=== PATIENT | male | born 1970 | race American Indian/Alaskan Native ===

== ENCOUNTER 2018-08-20 18:15 | Emergency (ER) | payer OTHER ==
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
[2018-08-20 19:00] VITALS: BP 131/101
[2018-08-20 19:15] LABS: Basophils % (Auto) 0.5 % (0.0-1.8); Eosinophils # (Auto) 0.1 K/mm3 (0.0-0.4); Eosinophils % (Auto) 0.9 % (0.0-4.3); Hematocrit 44.2 % (35.5-45.6); Lymphocytes % (Auto) 31.8 % (13.4-35.0); Mean Corpuscular HGB Conc 32 % (32-34); Mean Corpuscular Volume 72 fl (84-94); Monocytes # (Auto) 0.4 K/mm3 (0.0-0.8); Monocytes % (Auto) 6.9 % (0.0-7.3); Platelet Count 315 K/mm3 (140-440); Red Blood Count 6.11 M/mm3 (3.65-5.03); Red Cell Distribution Width 17.9 % (13.2-15.2)
[2018-08-20 19:16] LABS: Mean Corpuscular Hemoglobin 23 pg (28-32)
[2018-08-20 19:30] LABS: Creatine Kinase MB 4.9 ng/mL (0.0-4.0)
[2018-08-20 19:31] LABS: BUN/Creatinine Ratio 9; Blood Urea Nitrogen 12 mg/dL (9-20); Calcium 9.4 mg/dL (8.4-10.2); Hemolysis Index 0
--- NOTE | 2018-08-20 20:27 | XRay Report ---
FINAL REPORT PROCEDURE: XR CHEST ROUTINE 2V TECHNIQUE: PA and lateral chest radiographs were obtained. CPT 75330 HISTORY: back pain, pleurisy COMPARISON: No prior studies are available for comparison. FINDINGS: Heart: Normal. Mediastinum/Vessels: Normal. Lungs/Pleural space: Normal. Bony thorax: No acute osseous abnormality. Other: IMPRESSION: Normal examination.
== END 2018-08-20 20:30 | disposition home or self-care (01) ==
LOC: ED 18:15
DX: M54.89 Other dorsalgia (principal); M79.1 Myalgia; I10 Essential (primary) hypertension; F17.210 Nicotine dependence, cigarettes, uncomplicated
CPT/HCPCS: 36415; 71046; 80048; 82550; 82553; 84484; 85025; 85379

== ENCOUNTER 2020-03-12 22:10 | Emergency (ER) | payer BC, OTHER ==
--- NOTE | 2020-03-13 02:49 | Emergency Department Report ---
Chief Complaint: Upper Respiratory Infection Stated Complaint: SINUS INFECTION Time Seen by Provider: 03/13/20 02:36 - HPI History of Present Illness: Patient is a 49-year-old male who presents emergency room with complaints of a burning and irritation in his bilateral nostrils that began last night. He states when he inhales through his nose he feels the sensation. He denies any shortness of breath, cough, fever, nausea, vomiting, diarrhea, any other symptoms. He did not try any treatment at home. He has a past medical history of hypertension. He denies any allergies to medications. Initial vitals with elevated blood pressure which improved upon repeat On exam: Non toxic appearing, no acute distress atraumatic, normocephalic normal appearance of the eyes, PERRL, EOMI, no periorbital edema or ecchymosis moist mucus membranes, pale boggy turbinates with clear nasal drainage, no sinus ttp bilaterally regular heart rate and rhythm, no gallops, no rubs, no murmurs breath sounds are clear bilaterally, no w/r/r A&O x4, no focal neuro deficit skin is warm, dry, intact Examination consistent with allergic rhinitis No signs of acute sinusitis Discussed [id number] treatments with patient Patient will be referred to primary care doctor Medical screening examination performed and there is no threat to life or limb at this time - Exam Vital Signs: Vital Signs 03/12/20 23:25 Temperature 98 F Pulse Rate 80 Respiratory 20 Rate Blood Pressure 175/100 [Right] O2 Sat by Pulse 95 Oximetry MSE screening note: Focused history and physical exam performed. ED Disposition for MSE Clinical Impression: Allergic rhinitis Qualifiers: Allergic rhinitis trigger: unspecified Allergic rhinitis seasonality: unspecified Qualified Code(s): J30.9 - Allergic rhinitis, unspecified Disposition: MED SCREENING EXAM-LEFT Is pt being admited?: No Does the pt Need Aspirin: No Condition: Stable Instructions: Allergic Rhinitis (ED) Additional Instructions: Please use Flonase nasal spray [id number]. May use Zyrtec or Claritin [id number]. Please do not use the one that has a D on the end which stands for decongestant due to your high blood pressure. Follow-up with a primary care doctor. May use a humidifier. Return to emergency room for any new or worsening symptoms. Referrals: PRIMARY CARE, [Primary Care Provider] - 2-3 Days Forms: Work/School Release Form(ED) Time of Disposition: 02:48 Print Language: SAMI
[2020-03-13 02:59] VITALS: BP 156/105
== END 2020-03-13 02:58 | disposition left against medical advice (07) ==
LOC: ED 22:10
DX: J30.9 Allergic rhinitis, unspecified (principal)
CPT/HCPCS: 99282

== ENCOUNTER 2020-04-04 19:50 | Emergency (ER) | payer BC ==
[2020-04-04] MEDS ORDERED: LIDOCAINE VISCOUS 2% 15 ML ORAL LIQD PO ONE (22:59)
[2020-04-04] MEDS ORDERED: ALUM-MAG HYDROXIDE-SIMETHICONE 200-200-20MG/5ML ORAL LIQD 30 ML PO ONE (22:59)
--- NOTE | 2020-04-04 23:02 | Emergency Department Report ---
ED Abdominal Pain HPI - General Chief Complaint: Abdominal Pain Stated Complaint: HEARTBURN, ELEVATED BLOOD PRESSURE PUI?: No Time Seen by Provider: 04/04/20 22:46 Source: patient Mode of arrival: Ambulatory Limitations: No Limitations - History of Present Illness Initial Comments: Patient is a 49-year-old male that presents emergency room with complaints of epigastric pain after eating fried chicken wings. Patient states he is having a lot of gas. Patient states he is having a lot of burping. Patient states the pain is a burning sensation. Patient states is a 4 out of 10. Patient denies nausea vomiting. Patient denies fever and chills. Patient denies cough. Patient denies chest pain or shortness of breath. Patient is currently taking omeprazole once a day. Patient states his blood pressures been up since he is having this abdominal pain. Patient states he is compliant with his hydrochlorothiazide and amlo dipine. Patient states his primary care is managing his blood pressure. Patient's current blood pressure is 153/100. Patient denies recent travel. Patient denies recent international travel. Marzena ent denies exposure to the novel coronavirus. Patient denies sick contacts. Patient denies fever and chills. Patient denies cough. Patient denies diarrhea. Patient denies coming in contact with anybody with symptoms of the novel coronavirus. MD Complaint: abdominal pain -: Sudden Location: epigastric Radiation: none Migration to: no migration Severity: moderate Severity scale (0 -10): 4 Quality: burning Consistency: constant Improves With: rest Worsens With: eating Associated Symptoms: denies other symptoms. denies: nausea, vomiting, diarrhea, fever, chills, constipation, dysuria, hematemesis, hematochezia, melena, hematuria, anorexia, syncope - Related Data Previous Rx's Medication Instructions Recorded Last Taken Type Acetaminophen/Codeine [Tylenol #3] 1 tab PO Q6H PRN #14 tab 06/13/14 Unknown Rx Naproxen Sodium (Nf) [Anaprox Ds 550 mg PO BID #14 tablet 06/13/14 Unknown Rx (Nf)] lisinopriL [Zestril TAB] 20 mg PO QDAY #30 tablet 06/13/14 Unknown Rx Metaxalone [Skelaxin] 800 mg PO TID PRN #15 tablet 08/25/16 Unknown Rx traMADoL [Ultram] 50 mg PO Q6HR PRN #20 tablet 08/25/16 Unknown Rx Cyclobenzaprine [Flexeril] 10 mg PO TID PRN #14 tablet 08/20/18 Unknown Rx HYDROcodone/APAP 5-325 [Twain 1 - 2 each PO Q6HR PRN #14 tablet 08/20/18 Unknown Rx 5/325] Ibuprofen [Motrin 800 MG tab] 800 mg PO Q8HR PRN #20 tablet 08/20/18 Unknown Rx Methocarbamol [Robaxin-750] 750 mg PO Q6HR PRN #20 tablet 11/20/18 Unknown Rx Naproxen [Naprosyn] 500 mg PO BID #20 tablet 11/20/18 Unknown Rx Omeprazole 40 mg PO BID #30 capsule. 04/04/20 Unknown Rx Allergies Allergy/AdvReac Type Severity Reaction Status Date / Time No Known Allergies Allergy Verified 11/19/18 17:34 ED Review of Systems ROS: Stated complaint: HEARTBURN, ELEVATED BLOOD PRESSURE Other details as noted in HPI Constitutional: denies: chills, fever Eyes: denies: eye pain, eye discharge, vision change ENT: denies: ear pain, throat pain Respiratory: denies: cough, shortness of breath, wheezing Cardiovascular: denies: chest pain, palpitations Endocrine: no symptoms reported Gastrointestinal: abdominal pain. denies: nausea, diarrhea Genitourinary: denies: urgency, dysuria Musculoskeletal: denies: back pain, joint swelling, arthralgia Skin: denies: rash, lesions Neurological: denies: headache, weakness, paresthesias Psychiatric: denies: anxiety, depression Hematological/Lymphatic: denies: easy bleeding, easy bruising ED Past Medical Hx - Past Medical History Previous Medical History?: Yes Hx Hypertension: Yes Hx GERD: Yes - Surgical History Past Surgical History?: No Additional Surgical History: hernia repair,TAYLA left leg as child for alignment - Family History Family history: no significant - Social History Smoking Status: Current Every Day Smoker Substance Use Type: None - Medications Home Medications: Home Medications Medication Instructions Recorded Confirmed Last Taken Type Acetaminophen/Codeine [Tylenol #3] 1 tab PO Q6H PRN #14 tab 06/13/14 Unknown Rx Naproxen Sodium (Nf) [Anaprox Ds 550 mg PO BID #14 tablet 06/13/14 Unknown Rx (Nf)] lisinopriL [Zestril TAB] 20 mg PO QDAY #30 tablet 06/13/14 Unknown Rx Metaxalone [Skelaxin] 800 mg PO TID PRN #15 tablet 08/25/16 Unknown Rx traMADoL [Ultram] 50 mg PO Q6HR PRN #20 tablet 08/25/16 Unknown Rx Cyclobenzaprine [Flexeril] 10 mg PO TID PRN #14 tablet 08/20/18 Unknown Rx HYDROcodone/APAP 5-325 [Twain 1 - 2 each PO Q6HR PRN #14 tablet 08/20/18 Unknown Rx 5/325] Ibuprofen [Motrin 800 MG tab] 800 mg PO Q8HR PRN #20 tablet 08/20/18 Unknown Rx Methocarbamol [Robaxin-750] 750 mg PO Q6HR PRN #20 tablet 11/20/18 Unknown Rx Naproxen [Naprosyn] 500 mg PO BID #20 tablet 11/20/18 Unknown Rx Omeprazole 40 mg PO BID #30 capsule. 04/04/20 Unknown Rx ED Physical Exam - General Limitations: No Limitations General appearance: alert, in no apparent distress - Head Head exam: Present: atraumatic, normocephalic - Eye Eye exam: Present: normal appearance - ENT ENT exam: Present: mucous membranes moist - Neck Neck exam: Present: normal inspection - Respiratory Respiratory exam: Present: normal lung sounds bilaterally. Absent: respiratory distress - Cardiovascular Cardiovascular Exam: Present: regular rate, normal rhythm. Absent: systolic murmur, diastolic murmur, rubs, gallop - GI/Abdominal GI/Abdominal exam: Present: soft, tenderness (Mild epigastric tenderness.), normal bowel sounds - Rectal Rectal exam: Present: deferred - Extremities Exam Extremities exam: Present: normal inspection - Back Exam Back exam: Present: normal inspection - Neurological Exam Neurological exam: Present: alert, oriented X3 - Psychiatric Psychiatric exam: Present: normal affect, normal mood - Skin Skin exam: Present: warm, dry, intact, normal color. Absent: rash ED Course Vital Signs 04/04/20 20:31 Temperature 98.5 F Pulse Rate 91 H Respiratory 18 Rate Blood Pressure 153/108 O2 Sat by Pulse 97 Oximetry - Reevaluation(s) Reevaluation #1: Patient states his pain is resolved. Patient currently taking omeprazole 40 mg daily. Patient instructed to take omeprazole 40 mg twice daily and to see GI and his primary care. Patient referred back to his primary care for management of his blood pressure. I discussed all results and clinical findings with patient. I discussed plan of care with patient. Patient agrees with plan of care. Patient is stable for discharge. Patient will be discharged home. Patient given discharge instructions. Patient voiced understanding of discharge instructions. 04/04/20 23:15 ED Medical Decision Making - Medical Decision Making Patient is a 49-year-old male that presents emergency room with complaints of epigastric pain. Patient's clinical findings are consistent with gastritis and acid reflux. Patient complained of burning sensation in his epigastric region after eating fried foods. Patient's abdominal tenderness is mild on exam. Patient denied nausea vomiting. Patient was given a GI cocktail and responded well. Patient left the ER asymptomatic. Patient instructed to increase his omeprazole to twice a day and see a school social worker. Patient stable for discharge. Patient discharged home. - Differential Diagnosis Gastritis, GERD Critical care attestation.: If time is entered above; I have spent that time in minutes in the direct care of this critically ill patient, excluding procedure time. ED Disposition Clinical Impression: Abdominal pain Qualifiers: Abdominal location: epigastric Qualified Code(s): R10.13 - Epigastric pain Gastritis Qualifiers: Gastritis type: unspecified gastritis Chronicity: acute Gastritis bleeding: without bleeding Qualified Code(s): K29.00 - Acute gastritis without bleeding Disposition: TO HOME OR SELFCARE Is pt being admited?: No Does the pt Need Aspirin: No Condition: Stable Instructions: Gastritis (ED), Diet for Ulcers and Gastritis (ED), Gastroesophageal Reflux Disease (ED) Additional Instructions: Patient to follow-up with primary care in 2 to 3 days. Patient to follow-up with gastroenterology in 2 to 3 days. Patient to rest. Patient to increase water. Patient to eat a acid reflux, GERD diet. Patient to avoid ibuprofen. Patient to take Tylenol as needed for pain. Patient to take meds as directed. Patient to return to the ER if condition worsens, changes or new symptoms arise. Prescriptions: Omeprazole 40 mg PO BID #30 capsule.dr Referrals: [facility] MD GALO [Primary Care Provider] - 2-3 Days JOSEPH MENON MD [Staff Physician] - 2-3 Days Time of Disposition: 23:20
[2020-04-05 01:41] VITALS: BP 147/103
== END 2020-04-04 23:46 | disposition home or self-care (01) ==
LOC: ED 19:50
DX: K29.00 Acute gastritis without bleeding (principal); I10 Essential (primary) hypertension; K21.9 Gastro-esophageal reflux disease without esophagitis; F17.200 Nicotine dependence, unspecified, uncomplicated; Z98.890 Other specified postprocedural states; Z79.899 Other long term (current) drug therapy
CPT/HCPCS: 99282

== ENCOUNTER 2020-07-10 17:39 | Emergency (ER) | payer BC ==
[2020-07-10 18:02] VITALS: BP 142/97
== END 2020-07-10 20:00 | disposition left against medical advice (07) ==
LOC: ED 17:39
DX: M79.18 Myalgia, other site (principal); Z53.21 Procedure and treatment not carried out due to patient leaving prior to being seen by health care provider

== ENCOUNTER 2020-08-02 14:32 | Emergency (ER) | payer BC ==
[2020-08-02 14:41] VITALS: BP 149/94
[2020-08-02] MEDS ORDERED: FAMOTIDINE 20 MG TAB PO ONE (15:57)
[2020-08-02] MEDS ORDERED: HYOSCYAMINE SUBL 0.125 MG TAB SL ONE (15:57)
[2020-08-02] MEDS ORDERED: ALUM-MAG HYDROXIDE-SIMETHICONE 200-200-20MG/5ML ORAL LIQD 30 ML PO ONE (15:57)
--- NOTE | 2020-08-02 16:58 | Emergency Department Report ---
ED General Adult HPI - General Chief complaint: Abdominal Pain Stated complaint: STOMACH/BODY SWEATS Time Seen by Provider: 08/02/20 15:45 Source: patient Mode of arrival: Ambulatory Limitations: No Limitations - History of Present Illness Initial comments: Patient is a 49-year-old male presents emergency room with complaints of bubbling in the stomach that has been occurring for 3 weeks. He states that occasionally he has diarrhea. He denies any nausea, vomiting, sharp abdominal pain, urinary symptoms, urinary retention, fever, hematochezia, hematemesis, melena. Patient states that he had a colonoscopy and upper endoscopy and was diagnosed with PUD and H. pylori. He states that he completed the medications for H. pylori and then was retested and it had completely cleared. He states that he has only been on omeprazole for 4 weeks. He states that he feels a bubbling sensation, increased gas, burning sensation. He denies any allergies t o medications. - Related Data Previous Rx's Medication Instructions Recorded Last Taken Type Acetaminophen/Codeine [Tylenol #3] 1 tab PO Q6H PRN #14 tab 06/13/14 Unknown Rx Naproxen Sodium (Nf) [Anaprox Ds 550 mg PO BID #14 tablet 06/13/14 Unknown Rx (Nf)] lisinopriL [Zestril TAB] 20 mg PO QDAY #30 tablet 06/13/14 Unknown Rx Metaxalone [Skelaxin] 800 mg PO TID PRN #15 tablet 08/25/16 Unknown Rx traMADoL [Ultram] 50 mg PO Q6HR PRN #20 tablet 08/25/16 Unknown Rx Cyclobenzaprine [Flexeril] 10 mg PO TID PRN #14 tablet 08/20/18 Unknown Rx HYDROcodone/APAP 5-325 [[place] 1 - 2 each PO Q6HR PRN #14 tablet 08/20/18 Unknown Rx 5/325] Ibuprofen [Motrin 800 MG tab] 800 mg PO Q8HR PRN #20 tablet 08/20/18 Unknown Rx Methocarbamol [Robaxin-750] 750 mg PO Q6HR PRN #20 tablet 11/20/18 Unknown Rx Naproxen [Naprosyn] 500 mg PO BID #20 tablet 11/20/18 Unknown Rx Omeprazole 40 mg PO BID #30 capsule. 05/15/20 Unknown Rx Hyoscyamine Subl [Levsin Sl 0.125 0.125 mg SL Q6HR PRN #7 tab 08/02/20 Unknown Rx TAB] Sucralfate [Carafate] 1 gm PO ACHS 7 Days #21 tablet 08/02/20 Unknown Rx Allergies Allergy/AdvReac Type Severity Reaction Status Date / Time No Known Allergies Allergy Verified 08/02/20 14:37 ED Review of Systems ROS: Stated complaint: STOMACH/BODY SWEATS Other details as noted in HPI Comment: All other systems reviewed and negative ED Past Medical Hx - Past Medical History Hx Hypertension: Yes Hx GERD: Yes - Surgical History Additional Surgical History: hernia repair,TAYLA left leg as child for alignment - Social History Smoking Status: Current Some Day Smoker Substance Use Type: None - Medications Home Medications: Home Medications Medication Instructions Recorded Confirmed Last Taken Type Acetaminophen/Codeine [Tylenol #3] 1 tab PO Q6H PRN #14 tab 06/13/14 Unknown Rx Naproxen Sodium (Nf) [Anaprox Ds 550 mg PO BID #14 tablet 06/13/14 Unknown Rx (Nf)] lisinopriL [Zestril TAB] 20 mg PO QDAY #30 tablet 06/13/14 Unknown Rx Metaxalone [Skelaxin] 800 mg PO TID PRN #15 tablet 08/25/16 Unknown Rx traMADoL [Ultram] 50 mg PO Q6HR PRN #20 tablet 08/25/16 Unknown Rx Cyclobenzaprine [Flexeril] 10 mg PO TID PRN #14 tablet 08/20/18 Unknown Rx HYDROcodone/APAP 5-325 [[place] 1 - 2 each PO Q6HR PRN #14 tablet 08/20/18 Unknown Rx 5/325] Ibuprofen [Motrin 800 MG tab] 800 mg PO Q8HR PRN #20 tablet 08/20/18 Unknown Rx Methocarbamol [Robaxin-750] 750 mg PO Q6HR PRN #20 tablet 11/20/18 Unknown Rx Naproxen [Naprosyn] 500 mg PO BID #20 tablet 11/20/18 Unknown Rx Omeprazole 40 mg PO BID #30 juan josé. 04/04/20 Unknown Rx Hyoscyamine Subl [Levsin Sl 0.125 0.125 mg SL Q6HR PRN #7 tab 08/02/20 Unknown Rx TAB] Sucralfate [Carafate] 1 gm PO ACHS 7 Days #21 tablet 08/02/20 Unknown Rx ED Physical Exam - General Limitations: No Limitations General appearance: alert, in no apparent distress - Head Head exam: Present: atraumatic, normocephalic - Eye Eye exam: Present: normal appearance - ENT ENT exam: Present: mucous membranes moist - Respiratory Respiratory exam: Present: normal lung sounds bilaterally. Absent: respiratory distress, wheezes, rales, rhonchi, stridor, chest wall tenderness, accessory muscle use, decreased breath sounds, prolonged expiratory - Cardiovascular Cardiovascular Exam: Present: regular rate, normal rhythm, normal heart sounds. Absent: systolic murmur, diastolic murmur, rubs, gallop - GI/Abdominal GI/Abdominal exam: Present: soft, normal bowel sounds. Absent: distended, tenderness, guarding, rebound, rigid - Neurological Exam Neurological exam: Present: alert, oriented X3 - Psychiatric Psychiatric exam: Present: normal affect, normal mood - Skin Skin exam: Present: warm, dry, intact ED Course Vital Signs 08/02/20 14:40 Temperature 98.3 F Pulse Rate 108 H Respiratory 18 Rate Blood Pressure 149/94 O2 Sat by Pulse 97 Oximetry ED Medical Decision Making - Medical Decision Making Patient is a 49-year-old male presents emergency room with complaints of bubbling in the stomach that has been occurring for 3 weeks. He states that occasionally he has diarrhea. He denies any nausea, vomiting, sharp abdominal pain, urinary symptoms, urinary retention, fever, hematochezia, hematemesis, melena. Patient states that he had a colonoscopy and upper endoscopy and was diagnosed with PUD and H. pylori. He states that he completed the medications for H. pylori and then was retested and it had completely cleared. He states that he has only been on omeprazole for 4 weeks. He states that he feels a bubbling sensation, increased gas, burning sensation. He denies any allergies to medications. VSS. on exam: no abd ttp, no guarding, no rebound, no rigidity, no peritoneal signs, normal bowel sounds. pt given mylanta, levsin, pepcid. pt tolerated medications and symptoms improved and he was feeling much better and ready to go home. pt given prescription for carafate and levsin. advised pt Please take medication as prescribed. Increase your water intake. Please continue taking your omeprazole, it takes 12 weeks for this to reach its full effect. Follow-up with your primary care doctor. Follow-up with a GI doctor. Return to emergency room immediately for any new or worsening symptoms including but not limited to worsening abdominal pain, fever, vomiting, unable to tolerate by mouth intake, blood in the stool, etc. Critical care attestation.: If time is entered above; I have spent that time in minutes in the direct care of this critically ill patient, excluding procedure time. ED Disposition Clinical Impression: PUD (peptic ulcer disease) GERD (gastroesophageal reflux disease) Qualifiers: Esophagitis presence: without esophagitis Qualified Code(s): K21.9 - Gastro- esophageal reflux disease without esophagitis Disposition: TO HOME OR SELFCARE Is pt being admited?: No Does the pt Need Aspirin: No Condition: Stable Instructions: Peptic Ulcer (ED), Diet for Ulcers and Gastritis (ED), Gastroesophageal Reflux Disease (ED) Additional Instructions: Please take medication as prescribed. Increase your water intake. Please continue taking your omeprazole, it takes 12 weeks for this to reach its full effect. Follow-up with your primary care doctor. Follow-up with a GI doctor. Return to emergency room immediately for any new or worsening symptoms including but not limited to worsening abdominal pain, fever, vomiting, unable to tolerate by mouth intake, blood in the stool, etc. Prescriptions: Sucralfate [Carafate] 1 gm PO ACHS 7 Days #21 tablet Hyoscyamine Subl [Levsin Sl 0.125 TAB] 0.125 mg SL Q6HR PRN #7 tab PRN Reason: abdominal cramping Referrals: PRIMARY CARE, [Primary Care Provider] - 2-3 Days your, GI doctor [Other] - 2-3 Days Time of Disposition: 16:56 Print Language: CROATIAN
== END 2020-08-02 17:07 | disposition home or self-care (01) ==
LOC: ED 14:32
DX: K21.9 Gastro-esophageal reflux disease without esophagitis (principal); K27.9 Peptic ulcer, site unspecified, unspecified as acute or chronic, without hemorrhage or perforation; I10 Essential (primary) hypertension; F17.200 Nicotine dependence, unspecified, uncomplicated; Z98.890 Other specified postprocedural states; Z79.899 Other long term (current) drug therapy

== ENCOUNTER 2020-08-17 14:39 | Emergency (ER) | payer BC ==
[2020-08-17 14:51] VITALS: BP 146/106
--- NOTE | 2020-08-17 17:13 | Emergency Department Report ---
Chief Complaint: Pain General Stated Complaint: BODY KEEPS GETTING HOT Time Seen by Provider: 08/17/20 17:10 - HPI History of Present Illness: Patient is a 49-year-old -[place] male that presents to the emergency room stating" is my body keeps getting hot"'s. Patient was seen here on 08/02/2020 for the same complaint. Patient reports that he was seen by his primary care provider Dr. Moise and has been seen by gastroenterology for a colonoscopy as well as H. pylori and has tested negative for the last follow-up. Patient states he was on gabapentin but no longer taken since it gave him side effects of hallucination. Patient denies any fever no chills no nausea no vomiting no abdominal pain chest pain shortness of breathing headache or change in vision. Patient states that he will just get these feelings of being hot in his back arms and legs for no reason. - Exam Vital Signs: Vital Signs 08/17/20 14:47 Temperature 97.6 F Pulse Rate 106 H Respiratory 20 Rate Blood Pressure 146/106 O2 Sat by Pulse 97 Oximetry Physical Exam: Alert and oriented x3 no acute distress nontoxic in appearance. No labored breathing Ambulatory without difficulties MSE screening note: Focused history and physical exam performed. Due to findings the following was ordered: Patient is a 49-year-old -[place] male that presents to the emergency room stating" is my body keeps getting hot"'s. Patient was seen here on 08/02/2020 for the same complaint. Patient reports that he was seen by his primary care provider Dr. Moise and has been seen by gastroenterology for a colonoscopy as well as H. pylori and has tested negative for the last follow-up. Patient states he was on gabapentin but no longer taken since it gave him side effects of hallucination. Patient denies any fever no chills no nausea no vomiting no abdominal pain chest pain shortness of breathing headache or change in vision. Patient states that he will just get these feelings of being hot in his back arms and legs for no reason. Discussed with patient that the symptoms have been going on for over a month and that he would best be evaluated by his primary care provider. I discussed the patient and his vital signs are stable he does have hypertension and needs to continue with his amlodipine and hydrochlorothiazide. ED Disposition for [facility] [place] Disposition: - MED SCREENING EXAM-LEFT Condition: Stable
== END 2020-08-17 17:26 | disposition left against medical advice (07) ==
LOC: ED 14:39
DX: R50.9 Fever, unspecified (principal); Z53.21 Procedure and treatment not carried out due to patient leaving prior to being seen by health care provider

== ENCOUNTER 2020-11-03 15:40 | Emergency (ER) | payer BC ==
[2020-11-03 15:59] VITALS: BP 149/100
--- NOTE | 2020-11-03 17:53 | Emergency Department Report ---
Chief Complaint: Upper Respiratory Infection Stated Complaint: NOSE/THROAT DRY Time Seen by Provider: 11/03/20 17:46 - HPI History of Present Illness: pt is a 50 yo male who presents to the ED with c/o dry nose and mouth and stinging sensation that began a couple days ago. he states he also has sinus pressure. he states he has been taking debo, claritin, and azithromycin. he denies any cough, SOB, fever, n/v/d, abd pain, CP. PMHx GERD. no allergies to meds. vss on exam: Non toxic appearing, no acute distress atraumatic, normocephalic normal appearance of the eyes, PERRL, EOMI, no periorbital edema or ecchymosis moist mucus membranes, normal oropharynx, normal nasal turbinates bilaterally, no purulent drainage, no sinus tenderness palpation regular heart rate and rhythm, no gallops, no rubs, no murmurs breath sounds are clear bilaterally, no w/r/r, no stridor, no respiratory distress A&O x4, no focal neuro deficit skin is warm, dry, intact Advised patient to stop taking Debo and only take Claritin Increase fluid intake Use a humidifier Use Flonase nasal spray He has no clinical signs or symptoms of bacterial pneumonia or bacterial bronchitis No significant signs of acute bacterial sinusitis Advised patient please use a humidifier. use your claritin. use flonase (fluticasone) nasal spray. increase your water take. follow up with your primary care doctor. return to the emergency room for any new or worsening symptoms Discuss strict return precautions with patient advised patient to follow-up with primary care doctor Discuss strict return precautions - Exam Vital Signs: Vital Signs 11/03/20 15:58 Temperature 98.2 F Pulse Rate 88 Respiratory 20 Rate Blood Pressure 149/100 O2 Sat by Pulse 96 Oximetry MSE screening note: Focused history and physical exam performed. Due to findings the following was ordered: ED Disposition for MSE Clinical Impression: Encounter for medical screening examination Disposition: Z- MED SCREENING EXAM-LEFT Is pt being admited?: No Does the pt Need Aspirin: No Condition: Stable Additional Instructions: please use a humidifier. use your claritin. use flonase (fluticasone) nasal spray. increase your water take. follow up with your primary care doctor. return to the emergency room for any new or worsening symptoms. Referrals: your, primary care doctor [Other] - 2-3 Days Time of Disposition: 17:51 Print Language: SLOVENIAN
== END 2020-11-03 20:18 | disposition left against medical advice (07) ==
LOC: ED 15:40
DX: R03.0 Elevated blood-pressure reading, without diagnosis of hypertension (principal); Z53.21 Procedure and treatment not carried out due to patient leaving prior to being seen by health care provider

== ENCOUNTER 2020-11-12 20:33 | Emergency (ER) | payer BC ==
[2020-11-12 21:55] VITALS: BP 152/94
[2020-11-12 23:36] LABS: Alanine Aminotransferase 33 units/L (7-56); Albumin 4.2 g/dL (3.9-5); BUN/Creatinine Ratio 11; Blood Urea Nitrogen 16 mg/dL (9-20); Calcium 9.6 mg/dL (8.4-10.2); Hemolysis Index 12
[2020-11-12 23:54] LABS: Basophils % (Auto) 0.5 % (0.0-1.8); Eosinophils # (Auto) 0.1 K/mm3 (0.0-0.4); Eosinophils % (Auto) 1.2 % (0.0-4.3); Hematocrit 52.8 % (35.5-45.6); Lymphocytes # (Auto) 2.3 K/mm3 (1.2-5.4); Lymphocytes % (Auto) 38.6 % (13.4-35.0); Mean Corpuscular HGB Conc 34 % (32-34); Mean Corpuscular Volume 85 fl (84-94); Monocytes # (Auto) 0.6 K/mm3 (0.0-0.8); Monocytes % (Auto) 9.2 % (0.0-7.3); Platelet Count 225 K/mm3 (140-440); Red Blood Count 6.21 M/mm3 (3.65-5.03); Red Cell Distribution Width 14.4 % (13.2-15.2)
--- NOTE | 2020-11-13 00:09 | Emergency Department Report ---
ED Abdominal Pain HPI - General Chief Complaint: Abdominal Pain Stated Complaint: NOSE HURT,ABDOMINAL PAIN Time Seen by Provider: 11/12/20 23:26 Source: patient Mode of arrival: Ambulatory Limitations: No Limitations - History of Present Illness Initial Comments: 50-year-old -French male smoker presents emerged department complaint a 4-month history bloating and dyspepsia with increased in the last few weeks. States when the issues of the abdominal pain he is primarily worried about his liver not in the epigastric region that appears to be attached to the bottom of his rib cage which she is feels may not have been there before and wanted to be looked at also has been having some tingling and hot sensations to his hands and his feet in his head which occurred spontaneously for unknown duration and of unknown causes. Symptoms do resolve spontaneously as well not associated any chest pain, palpitations, headache, dizziness, blurry vision, fever, chills, sweats, hemoptysis, hematemesis, hematochezia, rashes, dysuria. MD Complaint: abdominal pain Location: diffuse Radiation: none Migration to: no migration Severity: mild Consistency: constant Improves With: eating Worsens With: nothing Associated Symptoms: denies other symptoms - Related Data Previous Rx's Medication Instructions Recorded Last Taken Type Acetaminophen/Codeine [Tylenol #3] 1 tab PO Q6H PRN #14 tab 06/13/14 Unknown Rx Naproxen Sodium (Nf) [Anaprox Ds 550 mg PO BID #14 tablet 06/13/14 Unknown Rx (Nf)] lisinopriL [Zestril TAB] 20 mg PO QDAY #30 tablet 06/13/14 Unknown Rx Metaxalone [Skelaxin] 800 mg PO TID PRN #15 tablet 08/25/16 Unknown Rx traMADoL [Ultram] 50 mg PO Q6HR PRN #20 tablet 08/25/16 Unknown Rx Cyclobenzaprine [Flexeril] 10 mg PO TID PRN #14 tablet 08/20/18 Unknown Rx HYDROcodone/APAP 5-325 [[place] 1 - 2 each PO Q6HR PRN #14 tablet 08/20/18 Unknown Rx 5/325] Ibuprofen [Motrin 800 MG tab] 800 mg PO Q8HR PRN #20 tablet 08/20/18 Unknown Rx Methocarbamol [Robaxin-750] 750 mg PO Q6HR PRN #20 tablet 11/20/18 Unknown Rx Naproxen [Naprosyn] 500 mg PO BID #20 tablet 11/20/18 Unknown Rx Omeprazole 40 mg PO BID #30 capsule. 04/04/20 Unknown Rx Hyoscyamine Subl [Levsin Sl 0.125 0.125 mg SL Q6HR PRN #7 tab 08/02/20 Unknown Rx TAB] Sucralfate [Carafate] 1 gm PO ACHS 7 Days #21 tablet 08/02/20 Unknown Rx Hyoscyamine Subl [Levsin Sl 0.125 0.125 mg SL Q6HR PRN #20 tab 11/13/20 Unknown Rx TAB] Allergies Allergy/AdvReac Type Severity Reaction Status Date / Time No Known Allergies Allergy Verified 08/02/20 14:37 ED Review of Systems ROS: Stated complaint: NOSE HURT,ABDOMINAL PAIN Other details as noted in HPI Comment: All other systems reviewed and negative ED Past Medical Hx - Past Medical History Previous Medical History?: Yes Hx Hypertension: Yes Hx GERD: Yes Additional medical history: PUD. Sinus Infection - Surgical History Past Surgical History?: Yes Additional Surgical History: hernia repair,TAYLA left leg as child for alignment - Social History Smoking Status: Current Every Day Smoker Substance Use Type: None - Medications Home Medications: Home Medications Medication Instructions Recorded Confirmed Last Taken Type Acetaminophen/Codeine [Tylenol #3] 1 tab PO Q6H PRN #14 tab 06/13/14 Unknown Rx Naproxen Sodium (Nf) [Anaprox Ds 550 mg PO BID #14 tablet 06/13/14 Unknown Rx (Nf)] lisinopriL [Zestril TAB] 20 mg PO QDAY #30 tablet 06/13/14 Unknown Rx Metaxalone [Skelaxin] 800 mg PO TID PRN #15 tablet 08/25/16 Unknown Rx traMADoL [Ultram] 50 mg PO Q6HR PRN #20 tablet 08/25/16 Unknown Rx Cyclobenzaprine [Flexeril] 10 mg PO TID PRN #14 tablet 08/20/18 Unknown Rx HYDROcodone/APAP 5-325 [[place] 1 - 2 each PO Q6HR PRN #14 tablet 08/20/18 Unknown Rx 5/325] Ibuprofen [Motrin 800 MG tab] 800 mg PO Q8HR PRN #20 tablet 08/20/18 Unknown Rx Methocarbamol [Robaxin-750] 750 mg PO Q6HR PRN #20 tablet 11/20/18 Unknown Rx Naproxen [Naprosyn] 500 mg PO BID #20 tablet 11/20/18 Unknown Rx Omeprazole 40 mg PO BID #30 capsule. 04/04/20 Unknown Rx Hyoscyamine Subl [Levsin Sl 0.125 0.125 mg SL Q6HR PRN #7 tab 08/02/20 Unknown Rx TAB] Sucralfate [Carafate] 1 gm PO ACHS 7 Days #21 tablet 08/02/20 Unknown Rx Hyoscyamine Subl [Levsin Sl 0.125 0.125 mg SL Q6HR PRN #20 tab 11/13/20 Unknown Rx TAB] ED Physical Exam - General Limitations: No Limitations General appearance: alert, in no apparent distress - Head Head exam: Present: atraumatic, normocephalic - Eye Eye exam: Present: normal appearance, PERRL, EOMI Pupils: Present: normal accommodation - ENT ENT exam: Present: normal exam, normal orophraynx, mucous membranes moist, TM's normal bilaterally - Neck Neck exam: Present: normal inspection, full ROM - Respiratory Respiratory exam: Present: normal lung sounds bilaterally. Absent: respiratory distress, wheezes, rales, chest wall tenderness, accessory muscle use - Cardiovascular Cardiovascular Exam: Present: regular rate, normal rhythm. Absent: systolic murmur, diastolic murmur, rubs, gallop - GI/Abdominal GI/Abdominal exam: Present: soft, normal bowel sounds, other (Protuberant abdomen bowel sounds are positive soft no Rovsing, no McBurney's tenderness, no Field sign, no Yo sign, no Aquino Jenkins. Epigastric mass. The xiphoid process is in the place of the which she was concerned). Absent: distended, tenderness, hyperactive bowel sounds, hypoactive bowel sounds, organomegaly, mass - Rectal Rectal exam: Present: deferred - Extremities Exam Extremities exam: Present: normal inspection, full ROM, normal capillary refill - Back Exam Back exam: Present: normal inspection. Absent: CVA tenderness (R), CVA tenderness (L) - Neurological Exam Neurological exam: Present: alert, oriented X3, CN II-XII intact, normal gait - Psychiatric Psychiatric exam: Present: normal affect, normal mood - Skin Skin exam: Present: warm, dry, intact, normal color. Absent: rash ED Course Vital Signs 11/12/20 21:47 Temperature 98.4 F Pulse Rate 91 H Respiratory 18 Rate Blood Pressure 152/94 O2 Sat by Pulse 96 Oximetry ED Medical Decision Making - Lab Data Result diagrams: 11/12/20 22:34 11/12/20 22:34 - Medical Decision Making This patient presents with abdominal pain of unclear etiology. Their evaluation has not identified a emergent etiology for the abdominal pain. Specifically, given the very benign exam, normal laboratory studies, and lack of significant risk factors, I have a very low suspicion for appendicitis, ischemic bowel, bowel perforation, or any other life threatening disease. I have discussed with the patient the level of uncertainty with undifferentiated abdominal pain and clearly explained the need to follow-up as noted on the discharge instructions, or return to the Emergency Department immediately if the pain worsens, develops fever, persistent and uncontrollable vomiting, or for any new symptoms or concerns. I discussed with the patient that this presentation today for abdominal pain could represent a significant risk for an acute abdominal process. Although the tests in the ED were essentially normal, there is still a possibility of a process such as appendicitis, diverticulitis, cholecystitis, ulcer, early bowel obstruction, mesenteric ischemia, kidney stone, or even kidney infection which could subsequently cause disability or . The patient understands that they must return within 24 hours for a recheck or see their physician within 24 hours for re-exam due to the possibility of significant surgical or medical process. Critical care attestation.: If time is entered above; I have spent that time in minutes in the direct care of this critically ill patient, excluding procedure time. 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 In the meantime for your intestinal discomfort you can incorporate Levsin to deal with some of the crampy sensation that you have been experiencing Prescriptions: Hyoscyamine Subl [Levsin Sl 0.125 TAB] 0.125 mg SL Q6HR PRN #20 tab PRN Reason: abd pain Referrals: PRIMARY CARE, [Primary Care Provider] - 3-5 Days [facility] [Provider Group] - 3-5 Days
== END 2020-11-13 00:32 | disposition home or self-care (01) ==
LOC: ED 20:33
DX: R10.84 Generalized abdominal pain (principal); I10 Essential (primary) hypertension; K21.9 Gastro-esophageal reflux disease without esophagitis; F17.200 Nicotine dependence, unspecified, uncomplicated; Z98.890 Other specified postprocedural states; Z79.1 Long term (current) use of non-steroidal anti-inflammatories (NSAID); Z79.899 Other long term (current) drug therapy
CPT/HCPCS: 36415; 80053; 85025

== ENCOUNTER 2020-12-15 19:27 | Emergency (ER) | payer SELFPAY ==
--- NOTE | 2020-12-15 20:51 | Event Note ---
ED Screening Note ED Screening Note: occasional SOB states he wants a CXR to make sure there is nothing wrong with the lungs no cough states he went to his PCP and was started on depression/anxiety medication pmhx: HTN, GERD allergy: none This initial assessment/diagnostic orders/clinical plan/treatment(s) is/are subject to change based on patients health status, clinical progression and re- assessment by fellow clinical providers in the ED. Further treatment and workup at subsequent clinical providers discretion. Patient/guardian urged not to elope from the ED as their condition may be serious if not clinically assessed and managed. Initial orders include: CXR
--- NOTE | 2020-12-15 21:24 | XRay Report ---
CHEST 2 VIEWS INDICATION / CLINICAL INFORMATION: SOB. COMPARISON: 11/19/18. FINDINGS: SUPPORT DEVICES: None. HEART / MEDIASTINUM: The heart size and pulmonary vasculature are normal. LUNGS / PLEURA: No significant pulmonary or pleural abnormality. No pneumothorax. ADDITIONAL FINDINGS: No significant additional findings. IMPRESSION: No acute abnormality or significant change. Signer Name: Herve Fournier MD Signed: 12/15/2020 9:20 PM Workstation Name: [id number]
--- NOTE | 2020-12-16 01:22 | Emergency Department Report ---
ED General Adult HPI - General Chief complaint: Dyspnea/Respdistress Stated complaint: CHEST PAIN DIFF BREATHING Time Seen by Provider: 12/15/20 20:47 Source: patient Mode of arrival: Ambulatory Limitations: No Limitations - History of Present Illness Radiation: non-radiation Quality: aching, other Consistency: constant Improves with: none Worsens with: none Associated Symptoms: denies: confusion, diaphoresis, loss of appetite, malaise, nausea/vomiting, syncope, weakness Treatments Prior to Arrival: none - Related Data Previous Rx's Medication Instructions Recorded Last Taken Type Acetaminophen/Codeine [Tylenol #3] 1 tab PO Q6H PRN #14 tab 06/13/14 Unknown Rx Naproxen Sodium (Nf) [Anaprox Ds 550 mg PO BID #14 tablet 06/13/14 Unknown Rx (Nf)] lisinopriL [Zestril TAB] 20 mg PO QDAY #30 tablet 06/13/14 Unknown Rx Metaxalone [Skelaxin] 800 mg PO TID PRN #15 tablet 08/25/16 Unknown Rx traMADoL [Ultram] 50 mg PO Q6HR PRN #20 tablet 08/25/16 Unknown Rx Cyclobenzaprine [Flexeril] 10 mg PO TID PRN #14 tablet 08/20/18 Unknown Rx HYDROcodone/APAP 5-325 [[place] 1 - 2 each PO Q6HR PRN #14 tablet 08/20/18 Unknown Rx 5/325] Ibuprofen [Motrin 800 MG tab] 800 mg PO Q8HR PRN #20 tablet 08/20/18 Unknown Rx Methocarbamol [Robaxin-750] 750 mg PO Q6HR PRN #20 tablet 11/20/18 Unknown Rx Naproxen [Naprosyn] 500 mg PO BID #20 tablet 11/20/18 Unknown Rx Omeprazole 40 mg PO BID #30 capsule. 04/04/20 Unknown Rx Hyoscyamine Subl [Levsin Sl 0.125 0.125 mg SL Q6HR PRN #7 tab 08/02/20 Unknown Rx TAB] Sucralfate [Carafate] 1 gm PO ACHS 7 Days #21 tablet 08/02/20 Unknown Rx Hyoscyamine Subl [Levsin Sl 0.125 0.125 mg SL Q6HR PRN #20 tab 11/13/20 Unknown Rx TAB] Allergies Allergy/AdvReac Type Severity Reaction Status Date / Time No Known Allergies Allergy Verified 08/02/20 14:37 ED Review of Systems ROS: Stated complaint: CHEST PAIN DIFF BREATHING Other details as noted in HPI Comment: All other systems reviewed and negative ED Past Medical Hx - Past Medical History Previous Medical History?: Yes Hx Hypertension: Yes Hx GERD: Yes Additional medical history: PUD. Sinus Infection - Surgical History Past Surgical History?: Yes Additional Surgical History: hernia repair,TAYLA left leg as child for alignment. bilateral legs - Social History Smoking Status: Current Every Day Smoker Substance Use Type: None - Medications Home Medications: Home Medications Medication Instructions Recorded Confirmed Last Taken Type Acetaminophen/Codeine [Tylenol #3] 1 tab PO Q6H PRN #14 tab 06/13/14 Unknown Rx Naproxen Sodium (Nf) [Anaprox Ds 550 mg PO BID #14 tablet 06/13/14 Unknown Rx (Nf)] lisinopriL [Zestril TAB] 20 mg PO QDAY #30 tablet 06/13/14 Unknown Rx Metaxalone [Skelaxin] 800 mg PO TID PRN #15 tablet 08/25/16 Unknown Rx traMADoL [Ultram] 50 mg PO Q6HR PRN #20 tablet 08/25/16 Unknown Rx Cyclobenzaprine [Flexeril] 10 mg PO TID PRN #14 tablet 08/20/18 Unknown Rx HYDROcodone/APAP 5-325 [[place] 1 - 2 each PO Q6HR PRN #14 tablet 08/20/18 Unknown Rx 5/325] Ibuprofen [Motrin 800 MG tab] 800 mg PO Q8HR PRN #20 tablet 08/20/18 Unknown Rx Methocarbamol [Robaxin-750] 750 mg PO Q6HR PRN #20 tablet 11/20/18 Unknown Rx Naproxen [Naprosyn] 500 mg PO BID #20 tablet 11/20/18 Unknown Rx Omeprazole 40 mg PO BID #30 capsule. 04/04/20 Unknown Rx Hyoscyamine Subl [Levsin Sl 0.125 0.125 mg SL Q6HR PRN #7 tab 08/02/20 Unknown Rx TAB] Sucralfate [Carafate] 1 gm PO ACHS 7 Days #21 tablet 08/02/20 Unknown Rx Hyoscyamine Subl [Levsin Sl 0.125 0.125 mg SL Q6HR PRN #20 tab 11/13/20 Unknown Rx TAB] ED Physical Exam - General Limitations: No Limitations General appearance: alert, in no apparent distress - Head Head exam: Present: atraumatic, normocephalic - Eye Eye exam: Present: normal appearance - ENT ENT exam: Present: mucous membranes moist - Neck Neck exam: Present: normal inspection - Respiratory Respiratory exam: Present: normal lung sounds bilaterally. Absent: respiratory distress - Cardiovascular Cardiovascular Exam: Present: regular rate, normal rhythm. Absent: systolic murmur, diastolic murmur, rubs, gallop - GI/Abdominal GI/Abdominal exam: Present: soft, normal bowel sounds - Rectal Rectal exam: Present: deferred - Extremities Exam Extremities exam: Present: normal inspection - Back Exam Back exam: Present: normal inspection - Neurological Exam Neurological exam: Present: alert, oriented X3 - Psychiatric Psychiatric exam: Present: normal affect, normal mood - Skin Skin exam: Present: warm, dry, intact, normal color. Absent: rash ED Course Vital Signs 12/15/20 12/16/20 19:44 02:23 Temperature 98.1 F Pulse Rate 87 84 Respiratory 16 18 Rate Blood Pressure 135/88 Blood Pressure 148/88 [Left] O2 Sat by Pulse 97 97 Oximetry Critical care attestation.: If time is entered above; I have spent that time in minutes in the direct care of this critically ill patient, excluding procedure time. ED Disposition Clinical Impression: Gasping for breath, Sleeping difficulty Disposition: [id number]/TX-[id number] PSY HOSP/PSY UNIT Is pt being admited?: No Does the pt Need Aspirin: No Condition: Stable Instructions: Sleep Studies, Shortness of Breath, Adult Additional Instructions: Symptoms are consistent with sleep apnea it is recommended that you obtain a sleep study for further evaluation and treatment options as you may have something called obstructive sleep apnea Referrals: PRIMARY CARE, [Primary Care Provider] - 3-5 Days KELLIE PHAM MD [Staff Physician] - 3-5 Days
[2020-12-16 02:24] VITALS: BP 148/88
== END 2020-12-16 02:23 ==
LOC: ED 19:27
DX: R06.00 Dyspnea, unspecified (principal); I10 Essential (primary) hypertension; K21.9 Gastro-esophageal reflux disease without esophagitis; F17.200 Nicotine dependence, unspecified, uncomplicated; Z79.899 Other long term (current) drug therapy; Z98.890 Other specified postprocedural states
CPT/HCPCS: 71046; 99283

== ENCOUNTER 2020-12-23 11:52 | Emergency (ER) | payer SELFPAY ==
[2020-12-23 12:05] VITALS: BP 152/86
--- NOTE | 2020-12-23 12:13 | Emergency Department Report ---
Chief Complaint: Skin/Abscess/Foreign Body Stated Complaint: SOMETHING IN THROAT Time Seen by Provider: 12/23/20 12:05 - HPI History of Present Illness: Patient is a 50-year-old male presents emergency room complaints of feeling like something is in his throat. He states the last thing he ate was lasagna last night for dinner. He states he has been tolerating p.o. intake without difficulty. He states that his throat feels dry, itchy, feels like he needs to clear his throat. He denies getting anything into the throat that he is aware of. He denies any choking. He denies any vomiting. He denies any hemoptysis. He has a past medical history of GERD. No allergies to medications. Patient states that he just started using a heater which blows on his face which he believes is drying him out. Vitals are stable On exam: Non toxic appearing, no acute distress atraumatic, normocephalic normal appearance of the eyes, PERRL, EOMI, no periorbital edema or ecchymosis moist mucus membranes, normal oropharynx regular heart rate and rhythm, no gallops, no rubs, no murmurs breath sounds are clear bilaterally, no w/r/r, no stridor, no respiratory distress, no accessory muscle use A&O x4, no focal neuro deficit skin is warm, dry, intact Patient is presenting for feeling like something is stuck in his throat He denies anything getting stuck or choking He states it feels itchy, dry, feels like he needs to clear his throat He recently began sitting with a heater which blows in his face He has no abnormality on physical examination as documented in chart I watched patient drink a bottle of water without any difficulty or regurgitation Patient will be referred to primary care doctor and GI doctor Discussed return precautions Medical screening exam performed there is no threat to life or limb this time - Exam Vital Signs: Vital Signs 12/23/20 12:04 Temperature 98.7 F Pulse Rate 87 Respiratory 18 Rate Blood Pressure 152/86 O2 Sat by Pulse 96 Oximetry MSE screening note: Focused history and physical exam performed. ED Disposition for MSE Clinical Impression: Encounter for medical screening examination Disposition: MED SCREENING EXAM-LEFT Is pt being admited?: No Does the pt Need Aspirin: No Condition: Stable Additional Instructions: follow up with a primary care doctor. follow up with a GI doctor. return to the emergency room for any new or worsening symptoms. Referrals: [facility] [Provider Group] - 2-3 Days your, primary care doctor [Other] - 2-3 Days Time of Disposition: 12:11 Print Language: SALVADOREAN
== END 2020-12-23 12:46 | disposition left against medical advice (07) ==
LOC: ED 11:52
DX: Z00.8 Encounter for other general examination (principal); Z53.21 Procedure and treatment not carried out due to patient leaving prior to being seen by health care provider

== ENCOUNTER 2020-12-26 13:53 | Emergency (ER) | payer SELFPAY ==
--- NOTE | 2020-12-26 14:51 | Event Note ---
ED Screening Note Date of service: 12/26/20 Time: 14:49 ED Screening Note: 50-year-old -Spanish male presents to the emergency room reporting that he is having some side effects of his medication and has had episodes of his been aggressive and has wanted to hurt others but he is aware that he cannot do that. Patient denies any suicidal thoughts. Patient states he recently started on Zoloft and hydroxyzine. Patient states when he takes Zoloft for makes him really feel weird and more agitated. Patient states the hydroxyzine makes him really thirsty. This initial assessment/diagnostic orders/clinical plan/treatment(s) is/are subject to change based on patients health status, clinical progression and re- assessment by fellow clinical providers in the ED. Further treatment and workup at subsequent clinical providers discretion. Patient/guardian urged not to elope from the ED as their condition may be serious if not clinically assessed and managed. Initial orders include:
[2020-12-26 15:28] LABS: Basophils # (Auto) 0.1 K/mm3 (0.0-0.1); Basophils % (Auto) 0.7 % (0.0-1.8); Eosinophils % (Auto) 0.6 % (0.0-4.3); Hematocrit 54.2 % (35.5-45.6); Hemoglobin 18.5 gm/dl (11.8-15.2); Lymphocytes # (Auto) 1.8 K/mm3 (1.2-5.4); Lymphocytes % (Auto) 25.4 % (13.4-35.0); Mean Corpuscular HGB Conc 34 % (32-34); Mean Corpuscular Volume 86 fl (84-94); Monocytes # (Auto) 0.5 K/mm3 (0.0-0.8); Monocytes % (Auto) 7.1 % (0.0-7.3); Platelet Count 240 K/mm3 (140-440); Red Blood Count 6.34 M/mm3 (3.65-5.03); Red Cell Distribution Width 14.1 % (13.2-15.2)
[2020-12-26 15:44] LABS: Calcium 9.6 mg/dL (8.4-10.2)
[2020-12-26 15:45] LABS: Bacteria,Urine 1+ /HPF (Negative); Bilirubin,Urine NEG (Negative); Blood,Urine NEG (Negative); Color,Urine Yellow (Yellow); Protein,Urine <15 mg/dL mg/dL (Negative); Urobilinogen,Urine < 2.0 mg/dL (<2.0); WBC,Urine < 1.0 /HPF (0.0-6.0)
[2020-12-26 15:46] LABS: Alanine Aminotransferase 33 units/L (7-56); Albumin 4.2 g/dL (3.9-5); BUN/Creatinine Ratio 9; Blood Urea Nitrogen 13 mg/dL (9-20); Calcium 9.3 mg/dL (8.4-10.2); Hemolysis Index 17
[2020-12-26 15:49] LABS: Amphetamine Screen,Urine Negative; Benzodiazepines Screen,Urine Negative; Cannabinoid Screen,Urine Negative; Cocaine Screen,Urine Negative; Methadone Screen,Urine Negative; Opiate Screen,Urine Negative
--- NOTE | 2020-12-26 19:12 | Emergency Department Report ---
ED General Adult HPI - General Chief complaint: Medical Clearance Stated complaint: REACTION TO MEDS/DEPRESSION Time Seen by Provider: 12/26/20 19:07 Source: patient Mode of arrival: Ambulatory Limitations: No Limitations - History of Present Illness Initial comments: Chief complaint: "I took too much medicine. I felt jittery. A lot of stuff is going on." HPI: This is a 50-year-old male with history of hypertension peptic ulcer disease GERD sinusitis who felt jittery after taking his medication. He was recently discharged with prescription for Carafate. He is also previously taking naproxen omeprazole and Levsin. Patient took these medications on empty stomach. He also has had some grief. His mother 2 months ago after a lee with cancer. He has been unemployed for the last year during COVID-19 pandemic. 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 I admits to being sad. Daily walks has helped his mood. He denies suicidal homicidal ideation. He also recently started taking Zoloft and hydroxyzine. He feels really thirsty after taking these medications. -: This morning ([place] jittery dry mouth) Severity scale (0 -10): 0 Consistency: now resolved Improves with: none Worsens with: none - Related Data Previous Rx's Medication Instructions Recorded Last Taken Type Acetaminophen/Codeine [Tylenol #3] 1 tab PO Q6H PRN #14 tab 06/13/14 Unknown Rx Naproxen Sodium (Nf) [Anaprox Ds 550 mg PO BID #14 tablet 06/13/14 Unknown Rx (Nf)] lisinopriL [Zestril TAB] 20 mg PO QDAY #30 tablet 06/13/14 Unknown Rx Metaxalone [Skelaxin] 800 mg PO TID PRN #15 tablet 08/25/16 Unknown Rx traMADoL [Ultram] 50 mg PO Q6HR PRN #20 tablet 08/25/16 Unknown Rx Cyclobenzaprine [Flexeril] 10 mg PO TID PRN #14 tablet 08/20/18 Unknown Rx HYDROcodone/APAP 5-325 [[place] 1 - 2 each PO Q6HR PRN #14 tablet 08/20/18 Unknown Rx 5/325] Ibuprofen [Motrin 800 MG tab] 800 mg PO Q8HR PRN #20 tablet 08/20/18 Unknown Rx Methocarbamol [Robaxin-750] 750 mg PO Q6HR PRN #20 tablet 11/20/18 Unknown Rx Naproxen [Naprosyn] 500 mg PO BID #20 tablet 11/20/18 Unknown Rx Omeprazole 40 mg PO BID #30 capsule. 04/04/20 Unknown Rx Hyoscyamine Subl [Levsin Sl 0.125 0.125 mg SL Q6HR PRN #7 tab 08/02/20 Unknown Rx TAB] Sucralfate [Carafate] 1 gm PO ACHS 7 Days #21 tablet 08/02/20 Unknown Rx Hyoscyamine Subl [Levsin Sl 0.125 0.125 mg SL Q6HR PRN #20 tab 11/13/20 Unknown Rx TAB] Allergies Allergy/AdvReac Type Severity Reaction Status Date / Time No Known Allergies Allergy Verified 12/23/20 12:01 ED Review of Systems ROS: Stated complaint: REACTION TO MEDS/DEPRESSION Other details as noted in HPI Comment: All other systems reviewed and negative Constitutional: denies: fever, malaise Respiratory: denies: cough, shortness of breath Cardiovascular: denies: chest pain ED Past Medical Hx - Past Medical History Previous Medical History?: Yes Hx Hypertension: Yes Hx GERD: Yes Additional medical history: PUD. Sinus Infection - Surgical History Past Surgical History?: Yes Additional Surgical History: hernia repair,TAYLA left leg as child for alignment. bilateral legs - Social History Smoking Status: Current Every Day Smoker Substance Use Type: None - Medications Home Medications: Home Medications Medication Instructions Recorded Confirmed Last Taken Type Acetaminophen/Codeine [Tylenol #3] 1 tab PO Q6H PRN #14 tab 06/13/14 Unknown Rx Naproxen Sodium (Nf) [Anaprox Ds 550 mg PO BID #14 tablet 06/13/14 Unknown Rx (Nf)] lisinopriL [Zestril TAB] 20 mg PO QDAY #30 tablet 06/13/14 Unknown Rx Metaxalone [Skelaxin] 800 mg PO TID PRN #15 tablet 08/25/16 Unknown Rx traMADoL [Ultram] 50 mg PO Q6HR PRN #20 tablet 08/25/16 Unknown Rx Cyclobenzaprine [Flexeril] 10 mg PO TID PRN #14 tablet 08/20/18 Unknown Rx HYDROcodone/APAP 5-325 [[place] 1 - 2 each PO Q6HR PRN #14 tablet 08/20/18 Unknown Rx 5/325] Ibuprofen [Motrin 800 MG tab] 800 mg PO Q8HR PRN #20 tablet 08/20/18 Unknown Rx Methocarbamol [Robaxin-750] 750 mg PO Q6HR PRN #20 tablet 11/20/18 Unknown Rx Naproxen [Naprosyn] 500 mg PO BID #20 tablet 11/20/18 Unknown Rx Omeprazole 40 mg PO BID #30 capsule.dr 04/04/20 Unknown Rx Hyoscyamine Subl [Levsin Sl 0.125 0.125 mg SL Q6HR PRN #7 tab 08/02/20 Unknown Rx TAB] Sucralfate [Carafate] 1 gm PO ACHS 7 Days #21 tablet 08/02/20 Unknown Rx Hyoscyamine Subl [Levsin Sl 0.125 0.125 mg SL Q6HR PRN #20 tab 11/13/20 Unknown Rx TAB] ED Physical Exam - General Limitations: No Limitations General appearance: alert, in no apparent distress, other (Pleasant jovial talkative insightful) - Head Head exam: Present: atraumatic, normocephalic - Eye Eye exam: Present: normal appearance - ENT ENT exam: Present: mucous membranes moist - Neck Neck exam: Present: normal inspection, full ROM - Respiratory Respiratory exam: Present: normal lung sounds bilaterally. Absent: respiratory distress, wheezes, rales, rhonchi - Cardiovascular Cardiovascular Exam: Present: regular rate, normal rhythm, normal heart sounds. Absent: systolic murmur, diastolic murmur, rubs, gallop - GI/Abdominal GI/Abdominal exam: Present: soft, normal bowel sounds. Absent: distended, tenderness, guarding, rebound - Rectal Rectal exam: Present: deferred - Extremities Exam Extremities exam: Present: normal inspection - Neurological Exam Neurological exam: Present: alert, oriented X3 - Psychiatric Psychiatric exam: Present: normal affect, normal mood - Skin Skin exam: Present: warm, dry, intact, normal color. Absent: rash ED Course Vital Signs 12/26/20 14:12 Temperature 99.1 F Pulse Rate 93 H Respiratory 18 Rate Blood Pressure 120/92 O2 Sat by Pulse 94 Oximetry ED Medical Decision Making - Lab Data Result diagrams: 12/26/20 15:11 12/26/20 15:11 Laboratory Tests 12/26/20 12/26/20 12/26/20 15:11 15:11 15:11 WBC 7.3 RBC 6.34 H Hgb 18.5 H Hct 54.2 H MCV 86 MCH 29 MCHC 34 RDW 14.1 Plt Count 240 Lymph % (Auto) 25.4 [place] % (Auto) 7.1 Eos % (Auto) 0.6 Baso % (Auto) 0.7 Lymph # (Auto) 1.8 [place] # (Auto) 0.5 Eos # (Auto) 0.0 Baso # (Auto) 0.1 Seg Neutrophils % 66.2 Seg Neutrophils # 4.8 Sodium 136 L 140 Potassium 3.4 L 3.6 Chloride 100.1 99.5 Carbon Dioxide 30 29 Anion Gap 9 15 BUN 13 14 Creatinine 1.4 H 1.5 H Estimated GFR > 60 59 BUN/Creatinine Ratio 9 9 Glucose 93 88 Calcium 9.3 9.6 Total Bilirubin 0.40 AST 24 ALT 33 Alkaline Phosphatase 63 Total Protein 7.4 Albumin 4.2 Albumin/Globulin Ratio 1.3 Urine Color Urine Turbidity Urine pH Ur Specific [place] Urine Protein Urine Glucose (UA) Urine Ketones Urine Blood Urine Nitrite Urine Bilirubin Urine Urobilinogen Ur Leukocyte Esterase Urine WBC (Auto) Urine RBC (Auto) Urine Bacteria (Auto) Salicylates Urine Opiates Screen Urine Methadone Screen Acetaminophen Ur Barbiturates Screen Ur Phencyclidine Scrn Ur Amphetamines Screen U Benzodiazepines Scrn Urine Cocaine Screen U Marijuana (THC) Screen Drugs of Abuse Note 12/26/20 12/26/20 12/26/20 15:11 15:11 Unknown WBC RBC Hgb Hct MCV MCH MCHC RDW Plt Count Lymph % (Auto) [place] % (Auto) Eos % (Auto) Baso % (Auto) Lymph # (Auto) [place] # (Auto) Eos # (Auto) Baso # (Auto) Seg Neutrophils % Seg Neutrophils # Sodium Potassium Chloride Carbon Dioxide Anion Gap BUN Creatinine Estimated GFR BUN/Creatinine Ratio Glucose Calcium Total Bilirubin AST ALT Alkaline Phosphatase Total Protein Albumin Albumin/Globulin Ratio Urine Color Yellow Urine Turbidity Clear Urine pH 7.0 Ur Specific [place] 1.011 Urine Protein <15 mg/dl Urine Glucose (UA) Neg Urine Ketones Neg Urine Blood Neg Urine Nitrite Neg Urine Bilirubin Neg Urine Urobilinogen < 2.0 Ur Leukocyte Esterase Neg Urine WBC (Auto) < 1.0 Urine RBC (Auto) 1.0 Urine Bacteria (Auto) 1+ Salicylates < 0.3 L Urine Opiates Screen Urine Methadone Screen Acetaminophen 5.0 L Ur Barbiturates Screen Ur Phencyclidine Scrn Ur Amphetamines Screen U Benzodiazepines Scrn Urine Cocaine Screen U Marijuana (THC) Screen Drugs of Abuse Note 12/26/20 Unknown WBC RBC Hgb Hct MCV MCH MCHC RDW Plt Count Lymph % (Auto) [place] % (Auto) Eos % (Auto) Baso % (Auto) Lymph # (Auto) [place] # (Auto) Eos # (Auto) Baso # (Auto) Seg Neutrophils % Seg Neutrophils # Sodium Potassium Chloride Carbon Dioxide Anion Gap BUN Creatinine Estimated GFR BUN/Creatinine Ratio Glucose Calcium Total Bilirubin AST ALT Alkaline Phosphatase Total Protein Albumin Albumin/Globulin Ratio Urine Color Urine Turbidity Urine pH Ur Specific [place] Urine Protein Urine Glucose (UA) Urine Ketones Urine Blood Urine Nitrite Urine Bilirubin Urine Urobilinogen Ur Leukocyte Esterase Urine WBC (Auto) Urine RBC (Auto) Urine Bacteria (Auto) Salicylates Urine Opiates Screen Negative Urine Methadone Screen Negative Acetaminophen Ur Barbiturates Screen Negative Ur Phencyclidine Scrn Negative Ur Amphetamines Screen Negative U Benzodiazepines Scrn Negative Urine Cocaine Screen Negative U Marijuana (THC) Screen Negative Drugs of Abuse Note Disclamer - Medical Decision Making Mr. Dong has mild adverse effects of new medications include hydroxyzine and Zoloft. He likely also has mild adverse effects to Levsin. I encouraged him to continue Zoloft and hydroxyzine. I encouraged him to continue to exercise. He denies suicidal homicidal ideation. He denies desire to harm anyone. CBC ch emistry urinalysis within normal limits. Urine tox screen within normal limits. Serum toxicology within normal limits. Encouraged to follow-up with his PCP Dr. Schwartz. Patient is stable for discharge home. Critical care attestation.: If time is entered above; I have spent that time in minutes in the direct care of this critically ill patient, excluding procedure time. ED Disposition Clinical Impression: Medication adverse effect Disposition: DC-01 TO HOME OR SELFCARE Is pt being admited?: No Does the pt Need Aspirin: No Condition: Stable Additional Instructions: Please continue to take the medication. Your body will become accustomed to new medications especially with food. Referrals: PRIMARY CARE, [Primary Care Provider] - 3-5 Days
[2020-12-26 19:45] VITALS: BP 128/84
== END 2020-12-26 19:46 | disposition home or self-care (01) ==
LOC: ED 13:53
DX: T50.905A Adverse effect of unspecified drugs, medicaments and biological substances, initial encounter (principal); I10 Essential (primary) hypertension; K21.9 Gastro-esophageal reflux disease without esophagitis; F17.200 Nicotine dependence, unspecified, uncomplicated; Z98.890 Other specified postprocedural states; Z79.899 Other long term (current) drug therapy
CPT/HCPCS: 36415; 80048; 80053; 80307; 80320; 81001; 85025; 99283; G0480

== ENCOUNTER 2021-03-05 19:00 | Emergency (ER) | payer SELFPAY ==
[2021-03-05 21:47] VITALS: BP 162/92
[2021-03-06] MEDS ORDERED: BUTALB/ACETAMINOPHEN/CAFFEINE TAB PO ONE (00:54)
[2021-03-06] MEDS ORDERED: IBUPROFEN 600 MG TAB PO ONE (00:54)
[2021-03-06] MEDS ORDERED: AMOXICILLIN/K CLAV 875/125MG TAB PO ONE (00:54)
--- NOTE | 2021-03-06 02:19 | Emergency Department Report ---
ED General Adult HPI - General Chief complaint: Headache Stated complaint: HEADACHE Source: patient Mode of arrival: Ambulatory Limitations: No Limitations - History of Present Illness Initial comments: Patient is a 50-year-old -[place] male with a history of GERD and hypertension who presents to the ED with complaint of acute onset persistent severe frontal sinus pressure and headache for the last 1 week but worse in the last 2 days. Patient states that the symptoms have been so severe that he is unable to sleep because of persistent depression on the maxillary sinuses with significant headache radiating to his parietal scalp. Patient also states that he has also been having persistent nasal and sinus congestion for over 2 weeks. Patient states that he has not taken any medications but admits that he has history of chronic rhinitis especially due to pollen. Patient denies chest pain, shortness of breath, fever, chills, dizziness, syncope, change in vision, nausea and vomiting, sore throat, page pain, neck pain, cough or palpitations epistaxis, abdominal pain or diarrhea. MD Complaint: frontal and maxillary sinus pressure and headache; nasal and sinus pressure -: Sudden, week(s) (1) Location: head, face Radiation: non-radiation Severity scale (0 -10): 6 Quality: aching, sharp Consistency: constant Improves with: none Worsens with: none Associated Symptoms: denies other symptoms, headaches, loss of appetite, other (Nasal sinus congestion). denies: confusion, chest pain, cough, diaphoresis, f ever/chills, malaise, nausea/vomiting, rash, seizure, shortness of breath, syncope, weakness Treatments Prior to Arrival: none - Related Data Previous Rx's Medication Instructions Recorded Last Taken Type Acetaminophen/Codeine [Tylenol #3] 1 tab PO Q6H PRN #14 tab 06/13/14 Unknown Rx Naproxen Sodium (Nf) [Anaprox Ds 550 mg PO BID #14 tablet 06/13/14 Unknown Rx (Nf)] lisinopriL [Zestril TAB] 20 mg PO QDAY #30 tablet 06/13/14 Unknown Rx Metaxalone [Skelaxin] 800 mg PO TID PRN #15 tablet 08/25/16 Unknown Rx traMADoL [Ultram] 50 mg PO Q6HR PRN #20 tablet 08/25/16 Unknown Rx Cyclobenzaprine [Flexeril] 10 mg PO TID PRN #14 tablet 08/20/18 Unknown Rx HYDROcodone/APAP 5-325 [[place] 1 - 2 each PO Q6HR PRN #14 tablet 08/20/18 Unknown Rx 5/325] Naproxen [Naprosyn] 500 mg PO BID #20 tablet 11/20/18 Unknown Rx methocarbamoL [Robaxin-750] 750 mg PO Q6HR PRN #20 tablet 11/20/18 Unknown Rx Omeprazole 40 mg PO BID #30 capsule. 04/04/20 Unknown Rx Hyoscyamine Subl [Levsin Sl 0.125 0.125 mg SL Q6HR PRN #7 tab 08/02/20 Unknown Rx TAB] Sucralfate [Carafate] 1 gm PO ACHS 7 Days #21 tablet 08/02/20 Unknown Rx Hyoscyamine Subl [Levsin Sl 0.125 0.125 mg SL Q6HR PRN #20 tab 11/13/20 Unknown Rx TAB] Amoxicillin/Potassium Clav 1 each PO Q12H #20 tablet 03/06/21 Unknown Rx [Augmentin 875-125 Tablet] Butalb/Acetamin/Caff 50-325-40 1 tab PO Q6HR PRN #12 tab 03/06/21 Unknown Rx [Fioricet 50-325-40] Cetirizine HCl [Zyrtec 10mg tab] 10 mg PO DAILY #30 tablet 03/06/21 Unknown Rx Ibuprofen [Motrin 800 MG tab] 800 mg PO Q8HR PRN #30 tablet 03/06/21 Unknown Rx Allergies Allergy/AdvReac Type Severity Reaction Status Date / Time No Known Allergies Allergy Verified 12/23/20 12:01 ED Review of Systems ROS: Stated complaint: HEADACHE Other details as noted in HPI Constitutional: denies: chills, fever Eyes: denies: eye pain, eye discharge, vision change ENT: congestion, other (Frontal and maxillary sinus pressure). denies: ear pain, throat pain Respiratory: denies: cough, shortness of breath, wheezing Cardiovascular: denies: chest pain, palpitations Endocrine: no symptoms reported Gastrointestinal: denies: abdominal pain, nausea, vomiting, diarrhea Genitourinary: denies: urgency, dysuria Musculoskeletal: denies: back pain, joint swelling, arthralgia Skin: denies: rash, lesions Neurological: headache (Frontal headache). denies: weakness, paresthesias Psychiatric: denies: anxiety, depression Hematological/Lymphatic: denies: easy bleeding, easy bruising ED Past Medical Hx - Past Medical History Previous Medical History?: Yes Hx Hypertension: Yes Hx GERD: Yes Additional medical history: PUD. Sinus Infection - Surgical History Additional Surgical History: hernia repair,TAYLA left leg as child for alignment. bilateral legs - Social History Smoking Status: Current Every Day Smoker Substance Use Type: Marijuana - Medications Home Medications: Home Medications Medication Instructions Recorded Confirmed Last Taken Type Acetaminophen/Codeine [Tylenol #3] 1 tab PO Q6H PRN #14 tab 06/13/14 Unknown Rx Naproxen Sodium (Nf) [Anaprox Ds 550 mg PO BID #14 tablet 06/13/14 Unknown Rx (Nf)] lisinopriL [Zestril TAB] 20 mg PO QDAY #30 tablet 06/13/14 Unknown Rx Metaxalone [Skelaxin] 800 mg PO TID PRN #15 tablet 08/25/16 Unknown Rx traMADoL [Ultram] 50 mg PO Q6HR PRN #20 tablet 08/25/16 Unknown Rx Cyclobenzaprine [Flexeril] 10 mg PO TID PRN #14 tablet 08/20/18 Unknown Rx HYDROcodone/APAP 5-325 [[place] 1 - 2 each PO Q6HR PRN #14 tablet 08/20/18 Unknown Rx 5/325] Naproxen [Naprosyn] 500 mg PO BID #20 tablet 11/20/18 Unknown Rx methocarbamoL [Robaxin-750] 750 mg PO Q6HR PRN #20 tablet 11/20/18 Unknown Rx Omeprazole 40 mg PO BID #30 capsule. 04/04/20 Unknown Rx Hyoscyamine Subl [Levsin Sl 0.125 0.125 mg SL Q6HR PRN #7 tab 08/02/20 Unknown Rx TAB] Sucralfate [Carafate] 1 gm PO ACHS 7 Days #21 tablet 08/02/20 Unknown Rx Hyoscyamine Subl [Levsin Sl 0.125 0.125 mg SL Q6HR PRN #20 tab 11/13/20 Unknown Rx TAB] Amoxicillin/Potassium Clav 1 each PO Q12H #20 tablet 03/06/21 Unknown Rx [Augmentin 875-125 Tablet] Butalb/Acetamin/Caff 50-325-40 1 tab PO Q6HR PRN #12 tab 03/06/21 Unknown Rx [Fioricet 50-325-40] Cetirizine HCl [Zyrtec 10mg tab] 10 mg PO DAILY #30 tablet 03/06/21 Unknown Rx Ibuprofen [Motrin 800 MG tab] 800 mg PO Q8HR PRN #30 tablet 03/06/21 Unknown Rx ED Physical Exam - General Limitations: No Limitations General appearance: alert, in no apparent distress - Head Head exam: Present: atraumatic, normocephalic, normal inspection - Eye Eye exam: Present: normal appearance, PERRL, EOMI Pupils: Present: normal accommodation - ENT ENT exam: Present: normal orophraynx, mucous membranes moist, TM's normal bilaterally, normal external ear exam, other (Palpable frontal and maxillary sinus pressure and tenderness; grossly congested nasal passages) - Neck Neck exam: Present: normal inspection, full ROM. Absent: tenderness - Respiratory Respiratory exam: Present: normal lung sounds bilaterally. Absent: respiratory distress, wheezes, rales, rhonchi, chest wall tenderness, accessory muscle use, decreased breath sounds, prolonged expiratory - Cardiovascular Cardiovascular Exam: Present: regular rate, normal rhythm, normal heart sounds. Absent: systolic murmur, diastolic murmur, rubs, gallop - GI/Abdominal GI/Abdominal exam: Present: soft, normal bowel sounds. Absent: tenderness, guarding, rebound, hyperactive bowel sounds, hypoactive bowel sounds, organomegaly - Rectal Rectal exam: Present: deferred - Extremities Exam Extremities exam: Present: normal inspection - Back Exam Back exam: Present: normal inspection, full ROM. Absent: tenderness, CVA tenderness (R), CVA tenderness (L), muscle spasm, paraspinal tenderness, vertebral tenderness - Neurological Exam Neurological exam: Present: alert, oriented X3, CN II-XII intact, normal gait, reflexes normal - Psychiatric Psychiatric exam: Present: normal affect, normal mood - Skin Skin exam: Present: warm, dry, intact, normal color. Absent: rash ED Course Vital Signs 03/05/21 21:37 Temperature 98 F Pulse Rate 92 H Respiratory 18 Rate Blood Pressure 162/92 O2 Sat by Pulse 100 Oximetry ED Medical Decision Making - Medical Decision Making This is a 50-year-old -[place] male with a history of GERD and hypertension who presents to the ED with complaint of acute onset persistent severe frontal sinus pressure and headache for the last 1 week but worse in the last 2 days. Patient states that the symptoms have been so severe that he is unable to sleep because of persistent depression on the maxillary sinuses with significant headache radiating to his parietal scalp. Patient also states that he has also been having persistent nasal and sinus congestion for over 2 weeks. Patient states that he has not taken any medications but admits that he has history of chronic rhinitis especially due to pollen. In the ED, patient is alert and oriented x 3 and is in no acute distress. Based on the history and physical exam findings, the patient symptoms are likely due to chronic rhinitis, chronic sinusitis causing sinus headache. Patient is hemodynamically stable. Patient was treated for pain in the ED and given initial oral antibiotics in the ED. Patient was thereafter discharged home on pain medications and antibiotics and advised to follow-up with his primary care physician in 7 to 10 days for reevaluation. Patient is advised return to the ED immediately if symptoms get worse. - Differential Diagnosis Sinusitis; rhinitis; sinus headache; tension headache; URI Critical care attestation.: If time is entered above; I have spent that time in minutes in the direct care of this critically ill patient, excluding procedure time. ED Disposition Clinical Impression: Chronic frontoethmoidal sinusitis, Sinus headache, Chronic rhinitis Disposition: DC-01 TO HOME OR SELFCARE Is pt being admited?: No Does the pt Need Aspirin: No Condition: Stable Instructions: Sinusitis, Adult, [id number], Upper Respiratory Infection, Adult, [id number], Sinus Headache, [id number] Additional Instructions: Based on your symptoms and physical exam findings, your symptoms are likely due to sinusitis causing sinus headache. Therefore take medications as advised, drink plenty of fluids and follow-up with your primary care physician in 7 to 10 days for reevaluation. Return to the ED immediately if symptoms get worse. Prescriptions: Amoxicillin/Potassium Clav [Augmentin 875-125 Tablet] 1 each PO Q12H #20 tablet Butalb/Acetamin/Caff 50-325-40 [Fioricet 50-325-40] 1 tab PO Q6HR PRN #12 tab PRN Reason: Headache Ibuprofen [Motrin 800 MG tab] 800 mg PO Q8HR PRN #30 tablet PRN Reason: Pain, Moderate (4-6) Cetirizine HCl [Zyrtec 10mg tab] 10 mg PO DAILY #30 tablet Referrals: PRIMARY CARE,MD [Primary Care Provider] - 3-5 Days Forms: Work/School Release Form(ED) Time of Disposition: 02:28 Print Language: BOTSWANAN
== END 2021-03-06 02:45 | disposition home or self-care (01) ==
LOC: ED 19:00
DX: J01.20 Acute ethmoidal sinusitis, unspecified (principal); J31.0 Chronic rhinitis; I10 Essential (primary) hypertension; K21.9 Gastro-esophageal reflux disease without esophagitis; Z79.899 Other long term (current) drug therapy; F17.200 Nicotine dependence, unspecified, uncomplicated
CPT/HCPCS: 99282

== ENCOUNTER 2021-05-01 16:01 | Emergency (ER) | payer BC ==
[2021-05-01 17:27] VITALS: BP 149/92
--- NOTE | 2021-05-01 18:44 | Emergency Department Report ---
ED General Adult HPI - General Chief complaint: Skin Rash Stated complaint: RASH UPPER LEG Source: patient Mode of arrival: Ambulatory Limitations: No Limitations - History of Present Illness Initial comments: Patient is a 50-year-old -[place] male with a history of hypertension, GERD and anxiety presents to the ED with complaint of acute onset persistent itchy erythematous dry scaly rashes bilaterally in the inguinal areas for the last 1 week. Patient states that the itching and the rash appears to be spreading and that he is unable to sleep because of persistent itching. Patient denies fever, chills, nausea, vomiting, testicular pain, dysuria, urinary frequency and urgency or cough and penile discharge. MD Complaint: Bilateral erythematous dry scaly rash on groins -: Sudden, week(s) (1) Location: genitals (inguinal) Radiation: non-radiation Severity scale (0 -10): 4 Quality: burning, aching, sharp Consistency: constant Improves with: none Worsens with: none Associated Symptoms: denies other symptoms, rash (erythematous dry scaly itchy rash on inguinal rash). denies: confusion, chest pain, cough, diaphoresis, fever/chills, headaches, loss of appetite, malaise, nausea/vomiting Treatments Prior to Arrival: none - Related Data Previous Rx's Medication Instructions Recorded Last Taken Type Acetaminophen/Codeine [Tylenol #3] 1 tab PO Q6H PRN #14 tab 06/13/14 Unknown Rx Naproxen Sodium (Nf) [Anaprox Ds 550 mg PO BID #14 tablet 06/13/14 Unknown Rx (Nf)] lisinopriL [Zestril TAB] 20 mg PO QDAY #30 tablet 06/13/14 Unknown Rx Metaxalone [Skelaxin] 800 mg PO TID PRN #15 tablet 08/25/16 Unknown Rx traMADoL [Ultram] 50 mg PO Q6HR PRN #20 tablet 08/25/16 Unknown Rx Cyclobenzaprine [Flexeril] 10 mg PO TID PRN #14 tablet 08/20/18 Unknown Rx HYDROcodone/APAP 5-325 [[place] 1 - 2 each PO Q6HR PRN #14 tablet 08/20/18 Unknown Rx 5/325] Naproxen [Naprosyn] 500 mg PO BID #20 tablet 11/20/18 Unknown Rx methocarbamoL [Robaxin-750] 750 mg PO Q6HR PRN #20 tablet 11/20/18 Unknown Rx Omeprazole 40 mg PO BID #30 capsule. 04/04/20 Unknown Rx Hyoscyamine Subl [Levsin Sl 0.125 0.125 mg SL Q6HR PRN #7 tab 08/02/20 Unknown Rx TAB] Sucralfate [Carafate] 1 gm PO ACHS 7 Days #21 tablet 08/02/20 Unknown Rx Hyoscyamine Subl [Levsin Sl 0.125 0.125 mg SL Q6HR PRN #20 tab 11/13/20 Unknown Rx TAB] Amoxicillin/Potassium Clav 1 each PO Q12H #20 tablet 03/06/21 Unknown Rx [Augmentin 875-125 Tablet] Butalb/Acetamin/Caff 50-325-40 1 tab PO Q6HR PRN #12 tab 03/06/21 Unknown Rx [Fioricet 50-325-40] Cetirizine HCl [Zyrtec 10mg tab] 10 mg PO DAILY #30 tablet 03/06/21 Unknown Rx Ibuprofen [Motrin 800 MG tab] 800 mg PO Q8HR PRN #30 tablet 03/06/21 Unknown Rx Terbinafine (Nf) [LamiSIL] 250 mg PO QDAY #14 tablet 05/01/21 Unknown Rx diphenhydrAMINE [Benadryl CAP] 25 mg PO Q6HR PRN #30 capsule 05/01/21 Unknown Rx Allergies Allergy/AdvReac Type Severity Reaction Status Date / Time No Known Allergies Allergy Verified 12/23/20 12:01 ED Review of Systems ROS: Stated complaint: RASH UPPER LEG Other details as noted in HPI Constitutional: denies: chills, fever Eyes: denies: eye pain, eye discharge, vision change ENT: denies: ear pain, throat pain Respiratory: denies: cough, shortness of breath, wheezing Cardiovascular: denies: chest pain, palpitations Endocrine: no symptoms reported Gastrointestinal: denies: abdominal pain, nausea, diarrhea Genitourinary: denies: urgency, dysuria Musculoskeletal: denies: back pain, joint swelling, arthralgia Skin: rash (erythematous dry scaly itchy rashes on inguinal areas bilaterally), pruritus. denies: lesions Neurological: denies: headache, weakness, paresthesias Psychiatric: denies: anxiety, depression Hematological/Lymphatic: denies: easy bleeding, easy bruising ED Past Medical Hx - Past Medical History Hx Hypertension: Yes Hx GERD: Yes Additional medical history: PUD. Sinus Infection - Surgical History Additional Surgical History: hernia repair,TAYLA left leg as child for alignment. bilateral legs - Social History Smoking Status: Current Every Day Smoker Substance Use Type: None - Medications Home Medications: Home Medications Medication Instructions Recorded Confirmed Last Taken Type Acetaminophen/Codeine [Tylenol #3] 1 tab PO Q6H PRN #14 tab 06/13/14 Unknown Rx Naproxen Sodium (Nf) [Anaprox Ds 550 mg PO BID #14 tablet 06/13/14 Unknown Rx (Nf)] lisinopriL [Zestril TAB] 20 mg PO QDAY #30 tablet 06/13/14 Unknown Rx Metaxalone [Skelaxin] 800 mg PO TID PRN #15 tablet 08/25/16 Unknown Rx traMADoL [Ultram] 50 mg PO Q6HR PRN #20 tablet 08/25/16 Unknown Rx Cyclobenzaprine [Flexeril] 10 mg PO TID PRN #14 tablet 08/20/18 Unknown Rx HYDROcodone/APAP 5-325 [[place] 1 - 2 each PO Q6HR PRN #14 tablet 08/20/18 Unknown Rx 5/325] Naproxen [Naprosyn] 500 mg PO BID #20 tablet 11/20/18 Unknown Rx methocarbamoL [Robaxin-750] 750 mg PO Q6HR PRN #20 tablet 11/20/18 Unknown Rx Omeprazole 40 mg PO BID #30 capsule. 04/04/20 Unknown Rx Hyoscyamine Subl [Levsin Sl 0.125 0.125 mg SL Q6HR PRN #7 tab 08/02/20 Unknown Rx TAB] Sucralfate [Carafate] 1 gm PO ACHS 7 Days #21 tablet 08/02/20 Unknown Rx Hyoscyamine Subl [Levsin Sl 0.125 0.125 mg SL Q6HR PRN #20 tab 11/13/20 Unknown Rx TAB] Amoxicillin/Potassium Clav 1 each PO Q12H #20 tablet 03/06/21 Unknown Rx [Augmentin 875-125 Tablet] Butalb/Acetamin/Caff 50-325-40 1 tab PO Q6HR PRN #12 tab 03/06/21 Unknown Rx [Fioricet 50-325-40] Cetirizine HCl [Zyrtec 10mg tab] 10 mg PO DAILY #30 tablet 03/06/21 Unknown Rx Ibuprofen [Motrin 800 MG tab] 800 mg PO Q8HR PRN #30 tablet 03/06/21 Unknown Rx Terbinafine (Nf) [LamiSIL] 250 mg PO QDAY #14 tablet 05/01/21 Unknown Rx diphenhydrAMINE [Benadryl CAP] 25 mg PO Q6HR PRN #30 capsule 05/01/21 Unknown Rx ED Physical Exam - General Limitations: No Limitations General appearance: alert, in no apparent distress - Head Head exam: Present: atraumatic, normocephalic, normal inspection - Eye Eye exam: Present: normal appearance, PERRL, EOMI Pupils: Present: normal accommodation - ENT ENT exam: Present: normal exam, normal orophraynx, mucous membranes moist, TM's normal bilaterally, normal external ear exam - Neck Neck exam: Present: normal inspection, full ROM - Respiratory Respiratory exam: Present: normal lung sounds bilaterally. Absent: respiratory distress, wheezes, rales, rhonchi, chest wall tenderness, accessory muscle use, prolonged expiratory - Cardiovascular Cardiovascular Exam: Present: regular rate, normal rhythm, normal heart sounds. Absent: systolic murmur, diastolic murmur, rubs, gallop - GI/Abdominal GI/Abdominal exam: Present: soft, normal bowel sounds. Absent: tenderness, guarding, rebound, hyperactive bowel sounds, hypoactive bowel sounds - Rectal Rectal exam: Present: deferred - Extremities Exam Extremities exam: Present: normal inspection, full ROM, normal capillary refill - Back Exam Back exam: Present: normal inspection, full ROM. Absent: tenderness, CVA tenderness (R), CVA tenderness (L), muscle spasm, paraspinal tenderness, vertebral tenderness - Neurological Exam Neurological exam: Present: alert, oriented X3, CN II-XII intact, normal gait, reflexes normal - Psychiatric Psychiatric exam: Present: normal affect, normal mood, anxious - Skin Skin exam: Present: warm, dry, intact, normal color, rash (erythematous dry scaly rash on inguinal areas), erythema. Absent: petechiae, pallor, ecchymosis ED Course Vital Signs 05/01/21 17:25 Temperature 98.7 F Pulse Rate 98 H Respiratory 18 Rate Blood Pressure 149/92 O2 Sat by Pulse 96 Oximetry ED Medical Decision Making - Medical Decision Making This is a 50-year-old -[place] male with a history of hypertension, GERD and anxiety presents to the ED with complaint of acute onset persistent itchy erythematous dry scaly rashes bilaterally in the inguinal areas for the last 1 week. Patient states that the itching and the rash appears to be spreading and that he is unable to sleep because of persistent itching. In the ED, patient is alert and oriented x3 and is not in any distress. Patient was discharged home on medications based on the physical exam findings of suspected tinea cruris rash. Patient was discharged home and advised to follow-up with his primary care physician in 7 to 10 days for reevaluation. Patient advised return to the ED immediately if symptoms get worse. - Differential Diagnosis Tinea cruris; folliculitis; abscess; cellulitis; Critical care attestation.: If time is entered above; I have spent that time in minutes in the direct care of this critically ill patient, excluding procedure time. ED Disposition Clinical Impression: Tinea of groin, Pruritic rash Disposition: DC- TO HOME OR SELFCARE Is pt being admited?: No Does the pt Need Aspirin: No Condition: Stable Instructions: Jock Itch, [id number], Rash, Adult, [id number] Additional Instructions: Take medications with food, drink plenty of fluids and follow up with your primary care physician in 7-10 days for reevaluation. Return to the ED immediately if symptoms get worse. Prescriptions: diphenhydrAMINE [Benadryl CAP] 25 mg PO Q6HR PRN #30 capsule PRN Reason: Itching Terbinafine (Nf) [LamiSIL] 250 mg PO QDAY #14 tablet Referrals: [facility] [Provider Group] - 7-10 days Time of Disposition: 18:42 Print Language: DJIBOUTIAN
== END 2021-05-01 19:26 | disposition home or self-care (01) ==
LOC: ED 16:01
DX: B35.6 Tinea cruris (principal); L28.2 Other prurigo; F41.9 Anxiety disorder, unspecified; I10 Essential (primary) hypertension; K21.9 Gastro-esophageal reflux disease without esophagitis; F17.200 Nicotine dependence, unspecified, uncomplicated; Z79.899 Other long term (current) drug therapy; Z98.890 Other specified postprocedural states
CPT/HCPCS: 99282

== ENCOUNTER 2021-07-14 15:23 | Emergency (ER) | payer BC ==
[2021-07-14 20:23] VITALS: BP 158/80
--- NOTE | 2021-07-14 20:54 | Emergency Department Report ---
ED General Adult HPI - General Chief complaint: Upper Respiratory Infection Stated complaint: COUGHING Time Seen by Provider: 07/14/21 20:46 Source: patient Mode of arrival: Ambulatory Limitations: No Limitations - History of Present Illness Initial comments: 50-year-old male patient with history of tobacco use presents to the emergency department with complaints of intermittently productive cough for 1 week. Patient received his COVID-19 vaccination series. No known sick contacts. No current steroid or antibiotic use. No recent travel. Patient has never been diagnosed with obstructive airway disease. He does not use supplemental oxygen at home. Denies fever, chills, chest pain, shortness of breath, wheezing, hemoptysis, lower extremity pain/swelling. Denies all other complaints at this time. - Related Data Previous Rx's Medication Instructions Recorded Last Taken Type Acetaminophen/Codeine [Tylenol #3] 1 tab PO Q6H PRN #14 tab 06/13/14 Unknown Rx Naproxen Sodium (Nf) [Anaprox Ds 550 mg PO BID #14 tablet 06/13/14 Unknown Rx (Nf)] lisinopriL [Zestril TAB] 20 mg PO QDAY #30 tablet 06/13/14 Unknown Rx Metaxalone [Skelaxin] 800 mg PO TID PRN #15 tablet 08/25/16 Unknown Rx traMADoL [Ultram] 50 mg PO Q6HR PRN #20 tablet 08/25/16 Unknown Rx Cyclobenzaprine [Flexeril] 10 mg PO TID PRN #14 tablet 08/20/18 Unknown Rx HYDROcodone/APAP 5-325 [[place] 1 - 2 each PO Q6HR PRN #14 tablet 08/20/18 Unknown Rx 5/325] Naproxen [Naprosyn] 500 mg PO BID #20 tablet 11/20/18 Unknown Rx methocarbamoL [Robaxin-750] 750 mg PO Q6HR PRN #20 tablet 11/20/18 Unknown Rx Omeprazole 40 mg PO BID #30 capsule. 04/04/20 Unknown Rx Hyoscyamine Subl [Levsin Sl 0.125 0.125 mg SL Q6HR PRN #7 tab 08/02/20 Unknown Rx TAB] Sucralfate [Carafate] 1 gm PO ACHS 7 Days #21 tablet 08/02/20 Unknown Rx Hyoscyamine Subl [Levsin Sl 0.125 0.125 mg SL Q6HR PRN #20 tab 11/13/20 Unknown Rx TAB] Amoxicillin/Potassium Clav 1 each PO Q12H #20 tablet 03/06/21 Unknown Rx [Augmentin 875-125 Tablet] Butalb/Acetamin/Caff 50-325-40 1 tab PO Q6HR PRN #12 tab 03/06/21 Unknown Rx [Fioricet 50-325-40] Cetirizine HCl [Zyrtec 10mg tab] 10 mg PO DAILY #30 tablet 03/06/21 Unknown Rx Ibuprofen [Motrin 800 MG tab] 800 mg PO Q8HR PRN #30 tablet 03/06/21 Unknown Rx Terbinafine (Nf) [LamiSIL] 250 mg PO QDAY #14 tablet 05/01/21 Unknown Rx diphenhydrAMINE [Benadryl CAP] 25 mg PO Q6HR PRN #30 capsule 05/01/21 Unknown Rx Benzonatate [Tessalon Perles] 200 mg PO Q8HR #30 capsule 07/14/21 Unknown Rx Allergies Allergy/AdvReac Type Severity Reaction Status Date / Time No Known Allergies Allergy Verified 07/14/21 20:23 ED Review of Systems ROS: Stated complaint: COUGHING Other details as noted in HPI Other: GENERAL: Negative for fever, chills, weight change, anorexia, fatigue. ENT: Negative for ear pain, difficulty hearing, sore throat, nasal congestion, epistaxis. CARDIOVASCULAR: Negative for chest pain, palpitations, lower extremity swelling. PULMONARY: Positive for cough. GASTROINTESTINAL: Negative for abdominal pain, nausea, vomiting, diarrhea, constipation. MUSCULOSKELETAL: Negative for joint pain, joint swelling, myalgias, back pain, neck pain. NEUROLOGICAL: Negative for headache, seizure, syncope, paresthesias, weakness. INTEGUMENTARY: Negative for erythema, rash, diaphoresis, laceration, ecchymosis. HEMATOLOGICAL: Negative for hemoptysis, hematemesis, hematochezia, hematuria. PSYCHIATRIC: Negative for hallucinations, suicidal ideation, homicidal ideation, anxiety, depression. ED Past Medical Hx - Past Medical History Previous Medical History?: Yes Hx Hypertension: Yes Hx GERD: Yes Additional medical history: PUD. Sinus Infection - Surgical History Past Surgical History?: Yes Additional Surgical History: hernia repair,TAYLA left leg as child for alignment. bilateral legs - Social History Smoking Status: Current Every Day Smoker Substance Use Type: None - Medications Home Medications: Home Medications Medication Instructions Recorded Confirmed Last Taken Type Acetaminophen/Codeine [Tylenol #3] 1 tab PO Q6H PRN #14 tab 06/13/14 Unknown Rx Naproxen Sodium (Nf) [Anaprox Ds 550 mg PO BID #14 tablet 06/13/14 Unknown Rx (Nf)] lisinopriL [Zestril TAB] 20 mg PO QDAY #30 tablet 06/13/14 Unknown Rx Metaxalone [Skelaxin] 800 mg PO TID PRN #15 tablet 08/25/16 Unknown Rx traMADoL [Ultram] 50 mg PO Q6HR PRN #20 tablet 08/25/16 Unknown Rx Cyclobenzaprine [Flexeril] 10 mg PO TID PRN #14 tablet 08/20/18 Unknown Rx HYDROcodone/APAP 5-325 [[place] 1 - 2 each PO Q6HR PRN #14 tablet 08/20/18 Unknown Rx 5/325] Naproxen [Naprosyn] 500 mg PO BID #20 tablet 11/20/18 Unknown Rx methocarbamoL [Robaxin-750] 750 mg PO Q6HR PRN #20 tablet 11/20/18 Unknown Rx Omeprazole 40 mg PO BID #30 capsule. 04/04/20 Unknown Rx Hyoscyamine Subl [Levsin Sl 0.125 0.125 mg SL Q6HR PRN #7 tab 08/02/20 Unknown Rx TAB] Sucralfate [Carafate] 1 gm PO ACHS 7 Days #21 tablet 08/02/20 Unknown Rx Hyoscyamine Subl [Levsin Sl 0.125 0.125 mg SL Q6HR PRN #20 tab 11/13/20 Unknown Rx TAB] Amoxicillin/Potassium Clav 1 each PO Q12H #20 tablet 03/06/21 Unknown Rx [Augmentin 875-125 Tablet] Butalb/Acetamin/Caff 50-325-40 1 tab PO Q6HR PRN #12 tab 03/06/21 Unknown Rx [Fioricet 50-325-40] Cetirizine HCl [Zyrtec 10mg tab] 10 mg PO DAILY #30 tablet 03/06/21 Unknown Rx Ibuprofen [Motrin 800 MG tab] 800 mg PO Q8HR PRN #30 tablet 03/06/21 Unknown Rx Terbinafine (Nf) [LamiSIL] 250 mg PO QDAY #14 tablet 05/01/21 Unknown Rx diphenhydrAMINE [Benadryl CAP] 25 mg PO Q6HR PRN #30 capsule 05/01/21 Unknown Rx Benzonatate [Tessalon Perles] 200 mg PO Q8HR #30 capsule 07/14/21 Unknown Rx ED Physical Exam - General Limitations: No Limitations - Other Other exam information: General: Awake and alert. No acute distress. Head: Atraumatic, normocephalic. Eyes: EOMI. Pupils are equal and round. Normal sclera and conjunctiva. ENT: Oral mucosa is moist. Normal pharyngeal exam. Neck: Supple. No lymphadenopathy. Pulmonary: Intermittent nonproductive cough. No respiratory distress. Clear to auscultation bilaterally. Cardiac: Regular rate and rhythm. Pulses are palpable and equal bilaterally. No lower extremity cyanosis or edema. Skin: Warm and dry. No rashes. Abdomen: Soft, non-tender, non-protuberant. No guarding, rigidity, or rebound. Bowel sounds are normal. No organomegaly or masses noted. Back: Normal alignment. No CVA tenderness. Extremities: Symmetrical. Full range of motion intact. Neurological: Alert and oriented, appropriately interactive, no focal deficits. Psych: Cooperative. Appropriate mood and affect. Speech is evenly metered. Thoughts are logically construed. ED Course Vital Signs 07/14/21 20:20 Temperature 98.4 F Pulse Rate 80 Respiratory 18 Rate Blood Pressure 158/80 [Left] O2 Sat by Pulse 96 Oximetry ED Medical Decision Making - Medical Decision Making Differential diagnosis including but not limited to: pneumonia, pleural effusion, influenza, pertussis, viral upper respiratory infection Patient presents to the emergency department with complaints of cough for 1 week. He is afebrile, hemodynamically stable, no hypoxia, no respiratory distress, ambulatory without assistance, tolerating oral intake without difficulty. Chest x-ray ordered by meat stuffer within normal limits. No clinical indication for further diagnostic work-up on an emergent basis at this time. Patient will be discharged home with prescription for antitussives and referred to primary care provider for close outpatient follow-up. Emphasized importance of calling tomorrow to arrange for follow-up appointment, as patient may have underlying obstructive pulmonary disease as a result of longstanding tobacco use. Patient expressed understanding and is agreeable to plan of care. Smoking cessation discussed. Strict return precautions provided. History, exam, diagnostic testing, and current condition do not suggest worrisome pathology to warrant further testing, continued ED treatment, admission, or surgical evaluation at this point. Given the low probability of a significant medical illness, it would be more likely to result in harm than benefit to perform further testing at this stage. Discussed findings, presumptive diagnosis, need for follow-up and specific signs/symptoms that should prompt immediate return to the emergency department. Instructions were explained in detail to the patient in addition to giving written discharge information. Patient expressed understanding and was given the opportunity to ask questions, all of which were satisfactorily answered prior to discharge home. Critical care attestation.: If time is entered above; I have spent that time in minutes in the direct care of this critically ill patient, excluding procedure time. ED Disposition Clinical Impression: Cough Disposition: 01 HOME / SELF CARE / HOMELESS Is pt being admited?: No Does the pt Need Aspirin: No Condition: Stable Instructions: Cough, Adult, [id number] Additional Instructions: Take Tessalon as directed for cough. Honey is an excellent natural cough suppressant. Please discontinue tobacco use. Rest. Drink plenty of fluids. Follow-up with primary care provider this week. Call tomorrow to schedule an appointment. See referral information below. Return to the emergency department immediately for new or worsening symptoms. Prescriptions: Benzonatate [Tessalon Perles] 200 mg PO Q8HR #30 capsule Referrals: KELLIE PHAM MD [Staff Physician] - 3-5 Days [facility] [Provider Group] - 3-5 Days Time of Disposition: 21:37
--- NOTE | 2021-07-14 21:14 | XRay Report ---
CHEST 2 VIEWS INDICATION / CLINICAL INFORMATION: cough...pt came in due to cough for a week. COMPARISON: Chest radiograph 12/15/2020 FINDINGS: SUPPORT DEVICES: None. HEART / MEDIASTINUM: No significant abnormality. LUNGS / PLEURA: No significant pulmonary or pleural abnormality. No pneumothorax. ADDITIONAL FINDINGS: No significant additional findings. IMPRESSION: 1. No acute findings. Signer Name: Wilbert Haney MD Signed: 07/14/2021 9:10 PM Workstation Name: [id number]
== END 2021-07-14 21:45 | disposition home or self-care (01) ==
LOC: ED 15:23
DX: R05 Cough (principal); I10 Essential (primary) hypertension; K21.9 Gastro-esophageal reflux disease without esophagitis; K27.9 Peptic ulcer, site unspecified, unspecified as acute or chronic, without hemorrhage or perforation; J32.9 Chronic sinusitis, unspecified; Z98.890 Other specified postprocedural states; F17.200 Nicotine dependence, unspecified, uncomplicated
CPT/HCPCS: 71046; 99283

== ENCOUNTER 2022-08-13 11:35 | Emergency (ER) | payer BC ==
[2022-08-13 11:52] VITALS: BP 154/105
--- NOTE | 2022-08-13 12:04 | Emergency Department Report ---
ED General Adult HPI - General Chief complaint: Pain General Stated complaint: CHEST PAIN Source: patient Mode of arrival: Ambulatory Limitations: Physical Limitation - History of Present Illness Initial comments: 51 y/o male present to ed complain of cough x 2 days .Patient state after eating that coughing became worse this a.m.Patient state history of anxiety and HTN .Denies any chest pain or shortness of breath at present. Patient is alert and oriented x3. No acute distress noted. No ill appearance. Patient is currently wearing a lidocaine patch to his left rib area. He states that the pain is a current 3 out of 10. Physical examination is unremarkable. X-ray showed no abnormality Rechecked the patient is resting quietly , comfortable and feeling better. I d iscussed the results of diagnostic study, my clinical impression and the plan for further treatment with the patient. Patient agrees with plan and discharge at this present time. All question addressed. I have given the patient instruction regarding a diagnosis ,expectation ,follow- up and return precaution. I explained to the patient that emergent condition may arise and to return to the ED for new worsen and any new persisting condition. I have explained the importance of following up with the primary care physician or referral physician listed below has instructed. The patient verbalized un derstanding of discharge instruction. Onset/Timin -: days(s) Location: chest Radiation: non-radiation Severity scale (0 -10): 2 Quality: aching Consistency: intermittent Improves with: none - Related Data Previous Rx's Medication Instructions Recorded Last Taken Type Acetaminophen/Codeine [Tylenol #3] 1 tab PO Q6H PRN #14 tab 06/13/14 Unknown Rx Naproxen Sodium (Nf) [Anaprox Ds 550 mg PO BID #14 tablet 06/13/14 Unknown Rx (Nf)] lisinopriL [Zestril TAB] 20 mg PO QDAY #30 tablet 06/13/14 Unknown Rx Metaxalone [Skelaxin] 800 mg PO TID PRN #15 tablet 08/25/16 Unknown Rx traMADoL [Ultram] 50 mg PO Q6HR PRN #20 tablet 08/25/16 Unknown Rx Cyclobenzaprine [Flexeril] 10 mg PO TID PRN #14 tablet 08/20/18 Unknown Rx HYDROcodone/APAP 5-325 [[place] 1 - 2 each PO Q6HR PRN #14 tablet 08/20/18 Unknown Rx 5/325] Naproxen [Naprosyn] 500 mg PO BID #20 tablet 11/20/18 Unknown Rx methocarbamoL [Robaxin-750] 750 mg PO Q6HR PRN #20 tablet 11/20/18 Unknown Rx Omeprazole 40 mg PO BID #30 capsule. 04/04/20 Unknown Rx Hyoscyamine Subl [Levsin Sl 0.125 0.125 mg SL Q6HR PRN #7 tab 08/02/20 Unknown Rx TAB] Sucralfate [Carafate] 1 gm PO ACHS 7 Days #21 tablet 08/02/20 Unknown Rx Hyoscyamine Subl [Levsin Sl 0.125 0.125 mg SL Q6HR PRN #20 tab 11/13/20 Unknown Rx TAB] Amoxicillin/Potassium Clav 1 each PO Q12H #20 tablet 03/06/21 Unknown Rx [Augmentin 875-125 Tablet] Butalb/Acetamin/Caff 50-325-40 1 tab PO Q6HR PRN #12 tab 03/06/21 Unknown Rx [Fioricet 50-325-40] Cetirizine HCl [Zyrtec 10mg tab] 10 mg PO DAILY #30 tablet 03/06/21 Unknown Rx Ibuprofen [Motrin 800 MG tab] 800 mg PO Q8HR PRN #30 tablet 03/06/21 Unknown Rx Terbinafine (Nf) [LamiSIL] 250 mg PO QDAY #14 tablet 05/01/21 Unknown Rx diphenhydrAMINE [Benadryl CAP] 25 mg PO Q6HR PRN #30 capsule 05/01/21 Unknown Rx Benzonatate [Tessalon Perles] 200 mg PO Q8HR #30 capsule 07/14/21 Unknown Rx Cyclobenzaprine [Flexeril] 10 mg PO TID PRN 15 Days #30 tab 08/13/22 Unknown Rx Naproxen [Naprosyn] 500 mg PO BID 15 Days #30 tablet 08/13/22 Unknown Rx Allergies Allergy/AdvReac Type Severity Reaction Status Date / Time No Known Allergies Allergy Verified 08/13/22 11:53 ED Review of Systems ROS: Stated complaint: CHEST PAIN Other details as noted in HPI Constitutional: denies: chills, fever Eyes: denies: eye pain, eye discharge, vision change ENT: denies: ear pain, throat pain Respiratory: denies: cough, shortness of breath, wheezing Cardiovascular: denies: chest pain, palpitations Endocrine: no symptoms reported Gastrointestinal: denies: abdominal pain, nausea, diarrhea Genitourinary: denies: urgency, dysuria Musculoskeletal: denies: back pain, joint swelling, arthralgia Skin: denies: rash, lesions Neurological: denies: headache, weakness, paresthesias Psychiatric: denies: anxiety, depression Hematological/Lymphatic: denies: easy bleeding, easy bruising ED Past Medical Hx - Past Medical History Previous Medical History?: Yes Hx Hypertension: Yes Hx GERD: Yes Additional medical history: PUD. Sinus Infection - Surgical History Additional Surgical History: hernia repair,TAYLA left leg as child for alignment. bilateral legs - Social History Smoking Status: Current Every Day Smoker Substance Use Type: None - Medications Home Medications: Home Medications Medication Instructions Recorded Confirmed Last Taken Type Acetaminophen/Codeine [Tylenol #3] 1 tab PO Q6H PRN #14 tab 06/13/14 Unknown Rx Naproxen Sodium (Nf) [Anaprox Ds 550 mg PO BID #14 tablet 06/13/14 Unknown Rx (Nf)] lisinopriL [Zestril TAB] 20 mg PO QDAY #30 tablet 06/13/14 Unknown Rx Metaxalone [Skelaxin] 800 mg PO TID PRN #15 tablet 08/25/16 Unknown Rx traMADoL [Ultram] 50 mg PO Q6HR PRN #20 tablet 08/25/16 Unknown Rx Cyclobenzaprine [Flexeril] 10 mg PO TID PRN #14 tablet 08/20/18 Unknown Rx HYDROcodone/APAP 5-325 [[place] 1 - 2 each PO Q6HR PRN #14 tablet 08/20/18 Unknown Rx 5/325] Naproxen [Naprosyn] 500 mg PO BID #20 tablet 11/20/18 Unknown Rx methocarbamoL [Robaxin-750] 750 mg PO Q6HR PRN #20 tablet 11/20/18 Unknown Rx Omeprazole 40 mg PO BID #30 capsule. 04/04/20 Unknown Rx Hyoscyamine Subl [Levsin Sl 0.125 0.125 mg SL Q6HR PRN #7 tab 08/02/20 Unknown Rx TAB] Sucralfate [Carafate] 1 gm PO ACHS 7 Days #21 tablet 08/02/20 Unknown Rx Hyoscyamine Subl [Levsin Sl 0.125 0.125 mg SL Q6HR PRN #20 tab 11/13/20 Unknown Rx TAB] Amoxicillin/Potassium Clav 1 each PO Q12H #20 tablet 03/06/21 Unknown Rx [Augmentin 875-125 Tablet] Butalb/Acetamin/Caff 50-325-40 1 tab PO Q6HR PRN #12 tab 03/06/21 Unknown Rx [Fioricet 50-325-40] Cetirizine HCl [Zyrtec 10mg tab] 10 mg PO DAILY #30 tablet 03/06/21 Unknown Rx Ibuprofen [Motrin 800 MG tab] 800 mg PO Q8HR PRN #30 tablet 03/06/21 Unknown Rx Terbinafine (Nf) [LamiSIL] 250 mg PO QDAY #14 tablet 05/01/21 Unknown Rx diphenhydrAMINE [Benadryl CAP] 25 mg PO Q6HR PRN #30 capsule 05/01/21 Unknown Rx Benzonatate [Tessalon Perles] 200 mg PO Q8HR #30 capsule 07/14/21 Unknown Rx Cyclobenzaprine [Flexeril] 10 mg PO TID PRN 15 Days #30 tab 08/13/22 Unknown Rx Naproxen [Naprosyn] 500 mg PO BID 15 Days #30 tablet 08/13/22 Unknown Rx ED Physical Exam - General Limitations: Physical Limitation General appearance: alert, in no apparent distress - Head Head exam: Present: atraumatic, normocephalic - Eye Eye exam: Present: normal appearance - ENT ENT exam: Present: mucous membranes moist - Neck Neck exam: Present: normal inspection - Respiratory Respiratory exam: Present: normal lung sounds bilaterally. Absent: respiratory distress - Cardiovascular Cardiovascular Exam: Present: regular rate, normal rhythm. Absent: systolic murmur, diastolic murmur, rubs, gallop - GI/Abdominal GI/Abdominal exam: Present: soft, normal bowel sounds - Rectal Rectal exam: Present: deferred - Extremities Exam Extremities exam: Present: normal inspection - Back Exam Back exam: Present: normal inspection - Neurological Exam Neurological exam: Present: alert, oriented X3 - Psychiatric Psychiatric exam: Present: normal affect, normal mood - Skin Skin exam: Present: warm, dry, intact, normal color. Absent: rash ED Course Vital Signs 08/13/22 11:49 Temperature 98.5 F Pulse Rate 106 H Respiratory 18 Rate Blood Pressure 154/105 O2 Sat by Pulse 95 Oximetry ED Medical Decision Making - Radiology Data [address] [address] XRay Report Signed Patient: MICHAEL EDMOND MR#: [id number] : 1970 Acct:[id number] Age/Sex: 51 / M ADM Date: 08/13/22 Loc: ED Attending Dr: Ordering Physician: GUY MARTINEZ MD Date of Service: 08/13/22 Procedure(s): XR chest routine 2V Accession Number(s): [id number] cc: GUY MARTINEZ MD Fluoro Time In Minutes: CHEST 2 VIEWS INDICATION / CLINICAL INFORMATION: rib pain, left. COMPARISON: 07/14/2021 FINDINGS: SUPPORT DEVICES: None. HEART / MEDIASTINUM: No significant abnormality. LUNGS / PLEURA: No significant pulmonary or pleural abnormality. No pneumothorax. ADDITIONAL FINDINGS: No left-sided rib fracture is identified. IMPRESSION: 1. No acute findings. Signer Name: Jose Motley MD Signed: 08/13/2022 12:41 PM Workstation Name: [id number] Transcribed By: Dictated By: Jose Motley MD Electronically Authenticated By: Jose Motley MD Signed Date/Time: 08/13/22 1241 DD/ 1240 TD/TT: - Medical Decision Making [address] [address] XRay Report Signed Patient: MICHAEL EDMOND MR#: [id number] : 1970 Acct:[id number] Age/Sex: 51 / M ADM Date: 08/13/22 Loc: ED Attending Dr: Ordering Physician: GUY MARTINEZ MD Date of Service: 08/13/22 Procedure(s): XR chest routine 2V Accession Number(s): [id number] cc: GUY MARTINEZ MD Fluoro Time In Minutes: CHEST 2 VIEWS INDICATION / CLINICAL INFORMATION: rib pain, left. COMPARISON: 07/14/2021 FINDINGS: SUPPORT DEVICES: None. HEART / MEDIASTINUM: No significant abnormality. LUNGS / PLEURA: No significant pulmonary or pleural abnormality. No pneumothor ax. ADDITIONAL FINDINGS: No left-sided rib fracture is identified. IMPRESSION: 1. No acute findings. Signer Name: Jose Motley MD Signed: 08/13/2022 12:41 PM Workstation Name: [id number] Transcribed By: AURELIO Dictated By: Jose Motley MD Electronically Authenticated By: Jose Motley MD Signed Date/Time: 08/13/22 124 DD/ 39 TD/TT: Critical care attestation.: If time is entered above; I have spent that time in minutes in the direct care of this critically ill patient, excluding procedure time. ED Disposition Clinical Impression: Rib pain on left side Disposition: 01 HOME / SELF CARE / HOMELESS Is pt being admited?: No Does the pt Need Aspirin: No Condition: Stable Instructions: Nonspecific Chest Pain, Adult Additional Instructions: take medication as prescribed return to Ed for any worsen symptoms Prescriptions: Cyclobenzaprine [Flexeril] 10 mg PO TID PRN 15 Days #30 tab PRN Reason: Muscle Spasm Naproxen [Naprosyn] 500 mg PO BID 15 Days #30 tablet Referrals: [facility] [Provider Group] - 3-5 Days Forms: Work/School Release Form(ED) Time of Disposition: 15:00
--- NOTE | 2022-08-13 12:45 | XRay Report ---
CHEST 2 VIEWS INDICATION / CLINICAL INFORMATION: rib pain, left. COMPARISON: 07/14/2021 FINDINGS: SUPPORT DEVICES: None. HEART / MEDIASTINUM: No significant abnormality. LUNGS / PLEURA: No significant pulmonary or pleural abnormality. No pneumothorax. ADDITIONAL FINDINGS: No left-sided rib fracture is identified. IMPRESSION: 1. No acute findings. Signer Name: Jose Motley MD Signed: 08/13/2022 12:41 PM Workstation Name: [id number]
== END 2022-08-13 16:19 | disposition home or self-care (01) ==
LOC: ED 11:35
DX: R07.81 Pleurodynia (principal); I10 Essential (primary) hypertension; K21.9 Gastro-esophageal reflux disease without esophagitis; F17.200 Nicotine dependence, unspecified, uncomplicated
CPT/HCPCS: 71046; 99283